=== PATIENT | male | born 1955 | race Caucasian/White ===

== ENCOUNTER 2023-02-16 08:39 | Inpatient (IN) | payer OTHER ==
[~2023-02-16] VITALS: Ht 191 cm; Wt 75.9 kg
[2023-02-16] VITALS (21 sets, daily range): BP systolic 102–135; BP diastolic 69–102
[~2023-02-16 08:39] MED LIST: ALBU90OI INH; ALBU90OI6 INH; AMLO10 PO; ANORO ELLIPTA1 EACH INH; ATOR20 PO; AZIT250 PO; CYCL10; DOXA2 PO; IBUP800 PO; LISINOPRIL PO; Mucinex600 MG PO; OXYACE5T PO; PROP10 PO; Prednisone20 MG PO; Zithromax250 MG PO
[2023-02-16 09:21] LABS: BASOPHILS ABSOLUTE AUTO 0.12 K/mm3 (0.00-0.23); BASOPHILS PERCENT AUTO 1 % (0-2); EOSINOPHILS ABSOLUTE AUTO 0.02 K/mm3 (0.00-0.68); EOSINOPHILS PERCENT AUTO 0 % (0-6); Hematocrit 44.4 % (37.0-53.0); Hemoglobin 15.9 g/dL (13.5-17.5); IMMATURE GRAN PERCENT AUTO 2 % (0-1); LYMPHOCYTES ABSOLUTE AUTO 1.64 K/mm3 (0.84-5.20); LYMPHOCYTES PERCENT AUTO 11 % (21-46); MONOCYTES ABSOLUTE AUTO 2.63 K/mm3 (0.16-1.47); MONOCYTES PERCENT AUTO 18 % (4-13); Mean Corpuscular HGB 32.5 pg (26.0-34.0); Mean Corpuscular HGB Conc 35.8 g/dL (31.5-36.5); Mean Corpuscular Volume 91 fL (80-100); NEUTROPHILS ABSOLUTE AUTO 10.33 K/mm3 (1.96-9.15); NEUTROPHILS PERCENT AUTO 69 % (41-73); Platelet Count 330 K/mm3 (150-400); RDW Coefficient Variation 14.1 % (11.7-14.2); RDW Standard Deviation 47.4 fL (35.1-46.3); Red Blood Cell Count 4.89 M/mm3 (4.30-5.90); White Blood Cell Count 15.04 K/mm3 (4.00-11.30)
[2023-02-16 09:45] LABS: Albumin, Blood 2.5 g/dL (3.4-5.0); Albumin/Globulin Ratio 0.5 (0.8-1.8); Bilirubin, Total 1.3 mg/dL (0.1-1.0); Bun/Creatinine Ratio 19.7 (12.0-20.0); Calcium, Blood 9.5 mg/dL (8.5-10.1); Creatinine, Blood 0.76 mg/dL (0.60-1.20); Globulin, Blood 4.9 g/dL (2.2-4.0); Potassium, Blood 3.9 mmol/L (3.5-5.5); Total Protein, Blood 7.4 g/dL (6.4-8.2)
--- NOTE | 2023-02-16 17:10 | NUR ---
SHIFT/ADMISSION SUMMARY Receied pt to medical floor at 1400 A&Ox3. Oriented to room and call light. Pain to left elbow 8/. Po pain med given. LUE wounds with drainage noted. Pictures in chart. Pt NPO for OR today. Will await report post procedure.
--- NOTE | 2023-02-16 17:48 | NUR ---
02/16/23 1748 Eli Guillen PRIOR TO COMING TO THE OR PATIENT RECEIVED CLINDA 900MG IV AT 1650 IN THE PREOP SETTING.
[2023-02-17 03:59] VITALS: BP 117/87
[2023-02-17 05:31] LABS: Hematocrit 32.5 % (37.0-53.0); Hemoglobin 11.4 g/dL (13.5-17.5); Mean Corpuscular HGB 32.1 pg (26.0-34.0); Mean Corpuscular HGB Conc 35.1 g/dL (31.5-36.5); Mean Corpuscular Volume 92 fL (80-100); Mean Platelet Volume 10.9 fL (9.1-12.4); Platelet Count 316 K/mm3 (150-400); RDW Coefficient Variation 14.4 % (11.7-14.2); RDW Standard Deviation 48.5 fL (35.1-46.3); Red Blood Cell Count 3.55 M/mm3 (4.30-5.90); White Blood Cell Count 15.59 K/mm3 (4.00-11.30)
[2023-02-17 05:53] LABS: BAND PERCENT MAN 7 % (0-8); BASOPHILS PERCENT MAN 0 % (0-2); EOSINOPHILS ABSOLUTE MAN 0.15 K/mm3 (0.00-0.68); EOSINOPHILS PERCENT MAN 1 % (0-6); LYMPHOCYTES % ATYPICAL MANUAL 3 % (0-0); LYMPHOCYTES ABSOLUTE MAN 1.87 K/mm3 (0.84-5.20); LYMPHOCYTES PERCENT MAN 9 % (21-46); MONOCYTES ABSOLUTE MAN 0.77 K/mm3 (0.16-1.47); MONOCYTES PERCENT MAN 5 % (4-13); NEUTROPHILS ABSOLUTE MAN 12.78 K/mm3 (1.96-9.15); SEG NEUTROPHILS PERCENT MAN 75 % (41-73); TOTAL CELLS COUNTED 100
--- NOTE | 2023-02-17 06:13 | NUR ---
SHIFT SUMMARY PT ARRIVED BACK FROM OR AT CHANGE OF SHIFT. PT HAD ALREADY SATURATED THROUGH HIS DRESSING AND THROUGH HIS GOWN AND PILLOW CASES OF SANGINOUS DRAINAGE. CALLED THE ANSWERING SERVICE FOR DR. LOPEZ WHO CALLED BACK AND SAID HE EXPECTED A DECENT AMOUNT OF DRAINAGE AND TO REINFORCE THE DRESSING. PT SATURATED THROUGH REINFORCEMENT DRESSING OF 3 ABD PADS, KERLIX ROLLED GAUZE AND JAMIR WRAP. DRESSING REMOVED AND REPLACED, AND CURRENTLY NOT SATURATING THROUGH THIS DRESSING. PRN NORCO GIVEN X2 WITH POSITIVE EFFECT. FIRE SAFETY REVIEWED, NO IGNITION SOURCES FOUND.
[2023-02-17 06:31] LABS: Albumin, Blood 1.8 g/dL (3.4-5.0); Albumin/Globulin Ratio 0.5 (0.8-1.8); Bilirubin, Total 0.6 mg/dL (0.1-1.0); Bun/Creatinine Ratio 29.1 (12.0-20.0); Creatinine, Blood 0.9 mg/dL (0.60-1.20); Globulin, Blood 3.5 g/dL (2.2-4.0)
[2023-02-17 06:33] LABS: Total Protein, Blood 5.3 g/dL (6.4-8.2)
[2023-02-17 08:44] VITALS: BP 107/77
--- NOTE | 2023-02-17 10:39 | NUR ---
Dr. Dawn at bedside, aware of hgb level today. Mateo FIGUEROA reinforced CDI. Plan return to OR tomorrow. NPO after MN
[2023-02-17 16:20] VITALS: BP 124/79
--- NOTE | 2023-02-17 16:28 | NUR ---
SHIFT SUMMARY Pt remains A&O x3 this shift. VSS. Continuous pulse ox in place as ordered. Resp even nonlabored on RA. Voiding without difficulty. Reinforced dressing to LUE CDI. Pain meds effective. Plan is to return to OR in am. NPO after MN. Call light in reach. Will continue to monitor this shift.
--- NOTE | 2023-02-17 18:43 | NUR ---
Pt requesting nicotine patch as he is craving a cigarette. Spoke with Dr. Perdomo who states he will not order as nicotine interupts the healing process. Pt made aware.
[2023-02-17 20:46] VITALS: BP 125/89
[2023-02-18] VITALS (22 sets, daily range): BP systolic 100–168; BP diastolic 63–101
[2023-02-18 05:29] LABS: Hematocrit 29.4 % (37.0-53.0); Hemoglobin 10.4 g/dL (13.5-17.5); Mean Corpuscular HGB 32.3 pg (26.0-34.0); Mean Corpuscular HGB Conc 35.4 g/dL (31.5-36.5); Mean Corpuscular Volume 91 fL (80-100); Mean Platelet Volume 10.2 fL (9.1-12.4); Platelet Count 346 K/mm3 (150-400); RDW Coefficient Variation 14.5 % (11.7-14.2); RDW Standard Deviation 48.9 fL (35.1-46.3); Red Blood Cell Count 3.22 M/mm3 (4.30-5.90); White Blood Cell Count 13.77 K/mm3 (4.00-11.30)
[2023-02-18 05:48] LABS: Bun/Creatinine Ratio 27.8 (12.0-20.0); Calcium, Blood 8.2 mg/dL (8.5-10.1); Creatinine, Blood 0.79 mg/dL (0.60-1.20); Potassium, Blood 3.2 mmol/L (3.5-5.5)
[2023-02-18 06:03] LABS: BAND PERCENT MAN 10 % (0-8); BASOPHILS PERCENT MAN 0 % (0-2); EOSINOPHILS ABSOLUTE MAN 0.13 K/mm3 (0.00-0.68); EOSINOPHILS PERCENT MAN 1 % (0-6); LYMPHOCYTES ABSOLUTE MAN 2.34 K/mm3 (0.84-5.20); LYMPHOCYTES PERCENT MAN 17 % (21-46); METAMYELOCYTE ABSOLUTE MAN 0.13 K/mm3 (0.00-0.00); METAMYELOCYTE PERCENT MAN 1 % (0-0); MONOCYTES ABSOLUTE MAN 1.92 K/mm3 (0.16-1.47); MONOCYTES PERCENT MAN 14 % (4-13); MYELOCYTE ABSOLUTE MAN 0.27 K/mm3 (0.00-0.00); MYELOCYTE PERCENT MAN 2 % (0-0); NEUTROPHILS ABSOLUTE MAN 8.95 K/mm3 (1.96-9.15); SEG NEUTROPHILS PERCENT MAN 55 % (41-73); TOTAL CELLS COUNTED 100
--- NOTE | 2023-02-18 06:48 | NUR ---
SHIFT SUMMARY PT C/O NICOTINE CRAVINGS, BUT PER SURGEON IS UNABLE TO HAVE NICOTINE REPLACEMENT. PRN PAIN MEDICATION GIVEN X3 WITH POSITIVE EFFECT. NPO SINCE MIDNIGHT. FIRE SAFETY REVIEWED. NO IGNITION SOURCES
--- NOTE | 2023-02-18 15:59 | NUR ---
02/18/23 1559 Gonzalo Koenig PT ON SCHEDULED ANTIBIOTICS.
--- NOTE | 2023-02-18 16:26 | NUR ---
SHIFT SUMMARY PT RESTING QUIETLY AWAKE AT START OF SHIFT. IVF'S INFUSING PER EMAR. PT NPO WAITING TO GO BACK FOR IRRIGATION AND DEBRIDEMENT. DR JOHNSON IN TO SEE PT IN AM TO CONFIRM PROCEDURE. DR WATT LATER IN TO SEE PT WELL. PT IS INDEPENDENT IN AND TO [facility]. STAT EKG DONE FOR PROCEDURE. PT FINALLY TAKEN DOWN THIS AFTERNOON. PT REMAINS IN PROCEDURE AT THIS TIME.
--- NOTE | 2023-02-18 18:55 | NUR ---
1515 PT RETURNED FROM I&D WITH WOUND VAC TO [facility]. PT ABLE TO TX SELF TO BED. IV ABX INFUSED PER EMAR LATE PT IN PROCEDURE. CURRENTLY EATING DINNER AND VERY GRATEFUL FOR FOOD AND WATER. REPORT GIVEN TO ONCOMING SMITHA.
[2023-02-19 03:39] VITALS: BP 131/81
[2023-02-19 04:43] LABS: Hematocrit 27.5 % (37.0-53.0); Hemoglobin 9.6 g/dL (13.5-17.5); Mean Corpuscular HGB 32.2 pg (26.0-34.0); Mean Corpuscular HGB Conc 34.9 g/dL (31.5-36.5); Mean Corpuscular Volume 92 fL (80-100); Mean Platelet Volume 9.9 fL (9.1-12.4); Platelet Count 377 K/mm3 (150-400); RDW Coefficient Variation 14.7 % (11.7-14.2); Red Blood Cell Count 2.98 M/mm3 (4.30-5.90); White Blood Cell Count 14.59 K/mm3 (4.00-11.30)
[2023-02-19 05:04] LABS: Albumin, Blood 1.9 g/dL (3.4-5.0); Anion Gap 4 mmol/L (6-16); Blood Urea Nitrogen 21 mg/dL (8-24); Bun/Creatinine Ratio 26.6 (12.0-20.0); CO2, Blood 27 mmol/L (21-32); Calcium, Blood 8.1 mg/dL (8.5-10.1); Chloride, Blood 104 mmol/L (98-108); Creatinine, Blood 0.79 mg/dL (0.60-1.20); Glomerular Filtration Rate 99 (60-); Glucose, Blood 130 mg/dL (70-99); Phosphorus, Blood 3.2 mg/dL (2.5-4.9); Potassium, Blood 4.2 mmol/L (3.5-5.5); Sodium, Blood 135 mmol/L (136-145)
[2023-02-19 05:32] LABS: BASOPHILS PERCENT MAN 0 % (0-2); EOSINOPHILS ABSOLUTE MAN 0.29 K/mm3 (0.00-0.68); EOSINOPHILS PERCENT MAN 2 % (0-6); LYMPHOCYTES % ATYPICAL MANUAL 1 % (0-0); LYMPHOCYTES ABSOLUTE MAN 2.33 K/mm3 (0.84-5.20); LYMPHOCYTES PERCENT MAN 15 % (21-46); METAMYELOCYTE ABSOLUTE MAN 0.72 K/mm3 (0.00-0.00); METAMYELOCYTE PERCENT MAN 5 % (0-0); MONOCYTES ABSOLUTE MAN 1.31 K/mm3 (0.16-1.47); MONOCYTES PERCENT MAN 9 % (4-13); NEUTROPHILS ABSOLUTE MAN 9.92 K/mm3 (1.96-9.15); SEG NEUTROPHILS PERCENT MAN 68 % (41-73); TOTAL CELLS COUNTED 100
--- NOTE | 2023-02-19 05:51 | NUR ---
SHIFT SUMMARY PRN PAIN MEDICATION GIVEN X2 THIS SHIFT WITH POSITIVE EFFECT. PT REQUESTED MEDICATION TO HELP HIM SLEEP. NOTIFIED YADIRA BANDA. ONE TIME ORDER OF MELATONIN GIVEN WITH NO EFFECT. NOTIFIED DR. RICO OF MELATONIN BEING INEFFECTIVE. TRAZADONE ORDER OBTAINED AND GIVEN, WITH NO EFFECT AGAIN. PT STATED HE WAS UNABLE TO SLEEP DUE TO HIS MIND RUNNING. NO OTHER EVENTS OVERNIGHT. FIRESAFETY REVIEWED, NO IGNITION SOURCES
[2023-02-19 07:48] VITALS: BP 133/96
[2023-02-19 16:27] VITALS: BP 147/90
--- NOTE | 2023-02-19 19:12 | NUR ---
SHIFT SUMMARY PT RESTING QUIETLY AT START OF SHIFT, HAVING NOT SLEPT MUCH AT ALL DURING THE NIGHT. PT RESTED QUIETLY OFF AND ON THRU OUT THE DAY. DR WATT IN TO SEE PT EARLY; NO NEW ORDERS AT THAT TIME. DR LOPEZ IN LATER TO SEE PT AND DISCUSS PLAN OF CARE. DRESSING TO L ARM TO BE CHANGED MONDAY, , AND MONDAY. SACK CLEANER TO COME UP AND CHANGE DRESSING TOMORROW AND HAVE WOUND CLINIC CHANGE DRSG THE REMAINING DAYS. POSSIBLE D/C AFTER DRSG CHANGE TOMORROW. IV ABX CONTINUED TODAY. PT MEDICATED FOR C/O PAIN PER EMAR. USING URINAL AT BS D/T WOUND VAC TO L ARM. DENIED FURTHER NEEDS AT THIS TIME. CALL LT IN REACH. REPORT GIVEN TO ONCOMING RN.
[2023-02-19 20:20] VITALS: BP 141/93
[2023-02-20 04:09] VITALS: BP 137/96
[2023-02-20 05:06] LABS: Hemoglobin 9.6 g/dL (13.5-17.5); Mean Corpuscular HGB Conc 34.3 g/dL (31.5-36.5); Mean Corpuscular Volume 93 fL (80-100); Mean Platelet Volume 9.6 fL (9.1-12.4); Platelet Count 413 K/mm3 (150-400); RDW Coefficient Variation 15.2 % (11.7-14.2); RDW Standard Deviation 51.8 fL (35.1-46.3); White Blood Cell Count 12.62 K/mm3 (4.00-11.30)
[2023-02-20 05:43] LABS: Albumin, Blood 1.9 g/dL (3.4-5.0); Anion Gap 3 mmol/L (6-16); Blood Urea Nitrogen 16 mg/dL (8-24); Bun/Creatinine Ratio 22.4 (12.0-20.0); CO2, Blood 27 mmol/L (21-32); Calcium, Blood 8.2 mg/dL (8.5-10.1); Chloride, Blood 108 mmol/L (98-108); Creatinine, Blood 0.71 mg/dL (0.60-1.20); Glomerular Filtration Rate 102 (60-); Glucose, Blood 111 mg/dL (70-99); Phosphorus, Blood 2.9 mg/dL (2.5-4.9); Potassium, Blood 4.4 mmol/L (3.5-5.5); Sodium, Blood 138 mmol/L (136-145)
[2023-02-20 05:45] LABS: BAND PERCENT MAN 2 % (0-8); BASOPHILS PERCENT MAN 0 % (0-2); EOSINOPHILS ABSOLUTE MAN 0.25 K/mm3 (0.00-0.68); EOSINOPHILS PERCENT MAN 2 % (0-6); LYMPHOCYTES % ATYPICAL MANUAL 1 % (0-0); LYMPHOCYTES ABSOLUTE MAN 4.92 K/mm3 (0.84-5.20); LYMPHOCYTES PERCENT MAN 38 % (21-46); METAMYELOCYTE PERCENT MAN 4 % (0-0); MONOCYTES PERCENT MAN 8 % (4-13); NEUTROPHILS ABSOLUTE MAN 5.93 K/mm3 (1.96-9.15); SEG NEUTROPHILS PERCENT MAN 45 % (41-73); TOTAL CELLS COUNTED 100
--- NOTE | 2023-02-20 06:35 | NUR ---
SHIFT SUMMARY NO EVENTS OVERNIGHT. PRN TRAZADONE AND PAIN MEDICATION GIVEN PER REQUEST. WOUND VAC TO L ARM, WOUND CARE NURSE TO CHANGE THE DRESSING TODAY. PT REPORTED A BM THIS SHIFT WELL.
[2023-02-20 07:59] VITALS: BP 140/99
[2023-02-20 15:43] VITALS: BP 149/99
--- NOTE | 2023-02-20 16:47 | NUR ---
WOUND CARE WOUND VAC DRESSING CHANGED. OLECRANON AND TWO MEDIAL UPPER ARM WOUNDS CLEANSED WITH NS. ADAPTIC PLACED TO MEDIAL WOUND BEDS. ALL WOUNDS DRAPPED WITH TRANSPARENT FILM. BLACK FOAM TO WOUND BEDS THEN TRACKED TOGETHER WITH BLACK FOAM. WOUND VAC SET TO CONTINOUS 120MMHG. PT TOLERATED WELL BUT DID REQUIRE BREAKTHROUH IV PAIN MEDICATION. DR. JOHNSON UPDATED ON PT STATUS. NEXT CHANGE MON.
--- NOTE | 2023-02-20 17:48 | NUR ---
SHIFT SUMMARY PT A&OX4, VSS, TOLERATING PO, VOIDING, AMB INDEPENDENTLY AND PAIN MANAGED W/ NORCO PO. DRESSING CHANGE DONE THIS AFTERNOON BY WOUND CARE NURSE, WOUND VAC IN PLACE, AND DRESSING C/D/I. CALLED DR. LOPEZ THIS AFTERNOON TO REQUEST PRN PAIN MED FOR DRESSING CHANGES, IV DILAUDID AND CONT PULSE OX ORDERED. CARE COORDINATION ROUNDED THIS AFTERNOON AND SPOKE W/ PT ABOUT POSSIBLE DISCHARGE TO SNF.
[2023-02-20 19:56] VITALS: BP 138/84
[2023-02-21 04:48] VITALS: BP 146/107
[2023-02-21 05:16] LABS: Hematocrit 30.4 % (37.0-53.0); Hemoglobin 10.2 g/dL (13.5-17.5); Mean Corpuscular HGB 31.6 pg (26.0-34.0); Mean Corpuscular HGB Conc 33.6 g/dL (31.5-36.5); Mean Corpuscular Volume 94 fL (80-100); Mean Platelet Volume 9.4 fL (9.1-12.4); Platelet Count 418 K/mm3 (150-400); RDW Coefficient Variation 15.1 % (11.7-14.2); RDW Standard Deviation 52.2 fL (35.1-46.3); Red Blood Cell Count 3.23 M/mm3 (4.30-5.90); White Blood Cell Count 16.51 K/mm3 (4.00-11.30)
[2023-02-21 06:08] LABS: BAND PERCENT MAN 4 % (0-8); BASOPHILS ABSOLUTE MAN 0.16 K/mm3 (0.00-0.23); BASOPHILS PERCENT MAN 1 % (0-2); EOSINOPHILS ABSOLUTE MAN 0.49 K/mm3 (0.00-0.68); EOSINOPHILS PERCENT MAN 3 % (0-6); LYMPHOCYTES ABSOLUTE MAN 4.62 K/mm3 (0.84-5.20); LYMPHOCYTES PERCENT MAN 28 % (21-46); MONOCYTES ABSOLUTE MAN 1.15 K/mm3 (0.16-1.47); MONOCYTES PERCENT MAN 7 % (4-13); MYELOCYTE ABSOLUTE MAN 0.33 K/mm3 (0.00-0.00); MYELOCYTE PERCENT MAN 2 % (0-0); NEUTROPHILS ABSOLUTE MAN 9.74 K/mm3 (1.96-9.15); SEG NEUTROPHILS PERCENT MAN 55 % (41-73); TOTAL CELLS COUNTED 100
--- NOTE | 2023-02-21 06:47 | NUR ---
SHIFT SUMMARY PRN TRAZADONE GIVEN PER REQUEST, PT SLEPT ENTIRE NIGHT, PT DID NOT REQUIRE PAIN MEDICATION OVERNIGHT.
[2023-02-21 07:52] VITALS: BP 157/109
[2023-02-21 14:33] VITALS: BP 141/96
[2023-02-21 19:14] VITALS: BP 150/96
[2023-02-22 04:29] VITALS: BP 145/93
[2023-02-22 04:57] LABS: Hemoglobin 10.2 g/dL (13.5-17.5); Mean Corpuscular HGB 31.9 pg (26.0-34.0); Mean Corpuscular Volume 94 fL (80-100); Mean Platelet Volume 9.4 fL (9.1-12.4); Platelet Count 458 K/mm3 (150-400); RDW Standard Deviation 51.6 fL (35.1-46.3); White Blood Cell Count 15.04 K/mm3 (4.00-11.30)
--- NOTE | 2023-02-22 05:37 | NUR ---
SHIFT SUMMARY PT LAYING IN BED DURING BEDSIDE REPORT, WOUND VAC TO LEFT UPPER ARM, PT ON CONTACT PRECAUTIONS- PT USES URINAL WITHOUT PROBLEMS, PT TOOK SCHEDULED HS MEDS WITHOUT PROBLEMS, PT C/O THAT PAIN IN LEFT UPPER ARM AND REQUESTED THAT I CALL AND GET PAIN MEDICATION, PT HAD NORCO 10/325MG PO PRN ORDERED, GAVE WITH HS MEDS 0030 PT REQUESTED ADDITIONAL PAIN MEDS FOR 7/10 PAIN IN LEFT UPPER ARM- PT SLEPT T/O REST OF SHIFT
[2023-02-22 05:52] LABS: BAND PERCENT MAN 2 % (0-8); BASOPHILS ABSOLUTE MAN 0.15 K/mm3 (0.00-0.23); BASOPHILS PERCENT MAN 1 % (0-2); EOSINOPHILS PERCENT MAN 4 % (0-6); LYMPHOCYTES ABSOLUTE MAN 3.76 K/mm3 (0.84-5.20); LYMPHOCYTES PERCENT MAN 25 % (21-46); METAMYELOCYTE PERCENT MAN 2 % (0-0); MONOCYTES ABSOLUTE MAN 1.65 K/mm3 (0.16-1.47); MONOCYTES PERCENT MAN 11 % (4-13); MYELOCYTE PERCENT MAN 2 % (0-0); NEUTROPHILS ABSOLUTE MAN 8.27 K/mm3 (1.96-9.15); SEG NEUTROPHILS PERCENT MAN 53 % (41-73); TOTAL CELLS COUNTED 100
[2023-02-22 07:12] VITALS: BP 146/93
--- NOTE | 2023-02-22 17:00 | NUR ---
SHIFT SUMMARY PT IS ALERT AND ORIENTED. INDEPENDENT IN THE ROOM. NO ACUTE CHANGES THIS SHIFT. WOUND CARE COMPLETED BY INTERNET RESEARCHER. PT IS ABLE TO MAKE NEEDS KNOWN. BED IS IN THE LOWEST POSITION WITH CALL LIGHT IN REACH.
--- NOTE | 2023-02-22 17:19 | NUR ---
WOUND CARE WOUND VAC DRESSING CHANGED PER ORDER. NEW PHOTO AND ASSESSMENT IN HARD CHART. FIVE TOTAL PIECES OF BLACK FOAM REMOVED. WOUNDS CLEANSED WITH NS, WINDOWPANED WITH TRANSPARENT FILM. SIX PIECES BLACK FOAM REAPPLIED, VAC SET TO CONTINUOUS 120MMHG. ALL WOUNDS ARE SHOWING IMPROVEMENT. PT TOLERATED CHANGE WELL
[2023-02-22 19:54] VITALS: BP 128/85
[2023-02-23 05:12] VITALS: BP 126/78
--- NOTE | 2023-02-23 05:25 | NUR ---
SHIFT SUMMARY PT LAYING IN BED DURING BEDSIDE ROUNDS, PT REPORTED PAIN TOLERABLE AT THAT TIME D/T PAIN MEDICATION GIVEN EARLIER, PT REQUESTED PAIN MEDICATION WITH HS IV ANTIBIOTICS- PT TOLERATED WELL, PT ON STYLIST APPRENTICE - 96-97% ON ROOM AIR- WOUND VAC IN PLACE AND SUCTIONING PER D.O- PT USES CALL LIGHT APPROPRIATELY
[2023-02-23 07:26] VITALS: BP 124/88
[2023-02-23 14:24] LABS: SARS-Cov-2 (COVID-19) PCR, MMC NEGATIVE (NEGATIVE)
[2023-02-23] MEDS ORDERED: JUVEN PACKET1 EAC3 PO (14:53)
[2023-02-23] MEDS ORDERED: CEFAZOLIN2 GM/50 M3 IV (14:54)
[2023-02-23] MEDS ORDERED: Norco 10-325 T1 EACH PO (14:55)
[2023-02-23] MEDS ORDERED: CLEOCIN PH600 MG/4 M IV (14:55)
[2023-02-23] MEDS ORDERED: VISBIOME 112.51 EACH PO (14:56)
--- NOTE | 2023-02-23 16:42 | NUR ---
PT DISCHARGED TO PSYCHIATRIC TO FINISH ANTIBIOTIC THERAPY. REPORT GIVEN TO RN AT FACILITY. ALERT AND ORIENTED X4 INDEPENDENT RA
== END 2023-02-23 16:20 | DRG 571 ==
LOC: ER 08:39 → MEDS 11:45
PROVIDERS: Family Medicine; Orthopaedic Surgery; Physician Assistant; Student in an Organized Health Care Education/Training Program; ADMIT Internal Medicine
PROC: 0JBF0ZZ Excision of Left Upper Arm Subcutaneous Tissue and Fascia, Open Approach (ICD-10-PCS; principal; 2023-02-16 15:30)
PROC: 0X970ZZ Drainage of Left Upper Extremity, Open Approach (ICD-10-PCS; 2023-02-18)
DX: L03.114 Cellulitis of left upper limb (principal); E87.1 Hypo-osmolality and hyponatremia; I10 Essential (primary) hypertension; B95.62 Methicillin resistant Staphylococcus aureus infection as the cause of diseases classified elsewhere; K46.9 Unspecified abdominal hernia without obstruction or gangrene; Z20.822 Contact with and (suspected) exposure to COVID-19; S40.812A Abrasion of left upper arm, initial encounter; D72.828 Other elevated white blood cell count; D64.9 Anemia, unspecified; E87.6 Hypokalemia; D75.839 Thrombocytosis, unspecified; X58.XXXA Exposure to other specified factors, initial encounter; F17.210 Nicotine dependence, cigarettes, uncomplicated; Z87.81 Personal history of (healed) traumatic fracture; Z79.899 Other long term (current) drug therapy; Z98.890 Other specified postprocedural states; Z98.818 Other dental procedure status; Z23 Encounter for immunization
CPT/HCPCS: 36415; 73201; 80048; 80053; 80069; 82550; 83605; 84295; 85025; 87040; 87070; 87075; 87077; 87147; 87186; 87205; 93005; 93010; 94640; 94664; 94760; 94762; 96365-59; 97110; 97116; 97162; 97165; 97530; 99284-25; A9270; C1751; J0295; J0690; J1100; J1170; J1650; J1885; J2250; J2405; J2543; J2704; J3010; J3370; J7030; J7120; Q9967; U0002

== ENCOUNTER 2023-03-24 04:47 | Day surgery (SDC) | payer OTHER ==
[~2023-03-24 04:47] MED LIST changes: +CEFAZOLIN2 GM/50 M3 IV; +CLEOCIN PH600 MG/4 M IV; +JUVEN PACKET1 EAC3 PO; +Norco 10-325 T1 EACH PO; +VISBIOME 112.51 EACH PO
== END 2023-03-24 22:53 | disposition home or self-care (01) ==
LOC: WOUND 04:47
DX: L02.414 Cutaneous abscess of left upper limb (principal); S41.102D Unspecified open wound of left upper arm, subsequent encounter
CPT/HCPCS: 99406

== ENCOUNTER 2023-03-31 01:43 | Day surgery (SDC) | payer OTHER | END 2023-03-31 22:51 | disposition home or self-care (01) | LOC: WOUND 01:43 | DX: S41.102D Unspecified open wound of left upper arm, subsequent encounter (principal); L02.414 Cutaneous abscess of left upper limb; J44.9 Chronic obstructive pulmonary disease, unspecified; X58.XXXD Exposure to other specified factors, subsequent encounter | CPT/HCPCS: G0463 ==

== ENCOUNTER 2023-04-07 03:02 | Day surgery (SDC) | payer OTHER | END 2023-04-07 22:38 | disposition home or self-care (01) | LOC: WOUND 03:02 | DX: S41.102D Unspecified open wound of left upper arm, subsequent encounter (principal); X58.XXXD Exposure to other specified factors, subsequent encounter | CPT/HCPCS: G0463 ==

== ENCOUNTER 2023-04-21 03:51 | Day surgery (SDC) | payer OTHER | END 2023-04-21 22:51 | disposition home or self-care (01) | LOC: WOUND 03:51 | DX: L02.414 Cutaneous abscess of left upper limb (principal); J44.9 Chronic obstructive pulmonary disease, unspecified; S41.102D Unspecified open wound of left upper arm, subsequent encounter; X58.XXXD Exposure to other specified factors, subsequent encounter | CPT/HCPCS: G0463 ==

== ENCOUNTER 2023-04-28 03:14 | Day surgery (SDC) | payer OTHER | END 2023-04-28 23:13 | disposition home or self-care (01) | LOC: WOUND 03:14 | DX: L02.414 Cutaneous abscess of left upper limb (principal); J44.9 Chronic obstructive pulmonary disease, unspecified; S41.102D Unspecified open wound of left upper arm, subsequent encounter | CPT/HCPCS: G0463 ==

== ENCOUNTER 2024-02-29 07:15 | Day surgery (SDC) | payer MEDICARE, OTHER ==
[~2024-02-29] VITALS: Ht 193 cm; Wt 80.7 kg
[2024-02-29] MEDS ORDERED: propofoL 40 ML IV ONE (07:36)
[2024-02-29] MEDS ORDERED: Lactated Ringer's 1,000 ML IV ONE ×2 (07:36→08:34)
[2024-02-29] MEDS ORDERED: ATOR20 (08:06)
[2024-02-29] MEDS ORDERED: Midazolam HCL 1 MG/ML 5MLVIAL ONE (09:00)
[2024-02-29] MEDS ORDERED: propofoL 20 ML IV ONE (09:25)
[2024-02-29 09:37] VITALS: BP 142/108
== END 2024-02-29 09:50 | disposition home or self-care (01) ==
LOC: ORSCSDS 07:15
PROVIDERS: Surgery
PROC: 0DBK8ZX Excision of Ascending Colon, Via Natural or Artificial Opening Endoscopic, Diagnostic (ICD-10-PCS; principal; 2024-02-29 08:30)
PROC: 0DBN8ZX Excision of Sigmoid Colon, Via Natural or Artificial Opening Endoscopic, Diagnostic (ICD-10-PCS; principal; 2024-02-29 08:30)
DX: R19.4 Change in bowel habit (principal); Z86.0101 Personal history of adenomatous and serrated colon polyps; D12.2 Benign neoplasm of ascending colon; D12.5 Benign neoplasm of sigmoid colon; J44.9 Chronic obstructive pulmonary disease, unspecified; E78.5 Hyperlipidemia, unspecified; I10 Essential (primary) hypertension; Z79.899 Other long term (current) drug therapy
CPT/HCPCS: 88305; J2250; J2704; J7120

== ENCOUNTER 2024-07-05 08:14 | Emergency (ER) | payer MEDICARE, OTHER ==
[~2024-07-05] VITALS: Ht 193 cm; Wt 77.1 kg
[~2024-07-05 08:14] MED LIST changes: +ATOR20
[2024-07-05 08:25] VITALS: BP 173/104
[2024-07-05] MEDS ORDERED: Bactrim Ds Tab1 EACH PO (08:33)
[2024-07-05] MEDS ORDERED: CEPH500 PO (08:33)
[2024-07-05] MEDS ORDERED: Trimethoprim/Sulfamethoxazole DS Tab PO ONE (08:35)
[2024-07-05] MEDS ORDERED: Cephalexin Monohydrate 500 MG Cap PO ONE (08:35)
== END 2024-07-05 09:31 | disposition home or self-care (01) ==
LOC: ER 08:14
DX: L02.211 Cutaneous abscess of abdominal wall (principal); I10 Essential (primary) hypertension; F17.200 Nicotine dependence, unspecified, uncomplicated
CPT/HCPCS: A9270

== ENCOUNTER 2024-10-09 00:21 | Inpatient (IN) | payer MEDICARE, OTHER ==
[~2024-10-09] VITALS: Ht 193 cm; Wt 79.7 kg
[2024-10-09] VITALS (7 sets, daily range): BP systolic 111–132; BP diastolic 84–100
[~2024-10-09 00:21] MED LIST changes: +Bactrim Ds Tab1 EACH PO; +CEPH500 PO
[2024-10-09] MEDS ORDERED: Albuterol 2.5 MG/3 ML VIAL INH SCH (00:25)
[2024-10-09 00:40] LABS: Bicarbonate Venous 13.3 mmol/L (24.0-30.0)
[2024-10-09 00:41] LABS: pH Blood Venous 7.14 (7.34-7.37)
[2024-10-09 00:42] LABS: PO2 Venous 32.9 mmHg (38-42)
[2024-10-09 00:43] LABS: PCO2 Venous 42 mmHg (38-42)
[2024-10-09 00:52] LABS: BASOPHILS ABSOLUTE AUTO 0.23 K/mm3 (0.00-0.23); BASOPHILS PERCENT AUTO 1 % (0-2); EOSINOPHILS ABSOLUTE AUTO 0.23 K/mm3 (0.00-0.68); EOSINOPHILS PERCENT AUTO 1 % (0-6); Hematocrit 51.3 % (37.0-53.0); Hemoglobin 16.6 g/dL (13.5-17.5); IMMATURE GRAN ABSOLUTE AUTO 0.52 K/mm3 (0.00-0.10); IMMATURE GRAN PERCENT AUTO 2 % (0-1); LYMPHOCYTES ABSOLUTE AUTO 9.62 K/mm3 (0.84-5.20); LYMPHOCYTES PERCENT AUTO 38 % (21-46); MONOCYTES PERCENT AUTO 10 % (4-13); Mean Corpuscular HGB 31.7 pg (26.0-34.0); Mean Corpuscular HGB Conc 32.4 g/dL (31.5-36.5); Mean Corpuscular Volume 98 fL (80-100); NEUTROPHILS ABSOLUTE AUTO 11.95 K/mm3 (1.96-9.15); NEUTROPHILS PERCENT AUTO 48 % (41-73); NRBC ABSOLUTE 0.02 K/mm3 (0.00-0.02); NRBC Auto 0.1 /100 WBC (0.0-0.2); RDW Coefficient Variation 14.1 % (11.7-14.2); RDW Standard Deviation 51.6 fL (35.1-46.3); Red Blood Cell Count 5.23 M/mm3 (4.30-5.90); White Blood Cell Count 25.15 K/mm3 (4.00-11.30)
[2024-10-09 00:54] LABS: Mean Platelet Volume 9.8 fL (9.1-12.4); Platelet Count 194 K/mm3 (150-400)
[2024-10-09] MEDS ORDERED: CefTRIAXone Sodium 1,000 MG in NS 100 ML IV ONE (01:05)
[2024-10-09] MEDS ORDERED: Azithromycin 500 MG in NS 250 ML IV ONE (01:05)
[2024-10-09 03:58] LABS: Influenza A, PCR NEGATIVE (NEGATIVE); Influenza B, PCR NEGATIVE (NEGATIVE); Resp Syncytial Virus, PCR NEGATIVE (NEGATIVE); SARS-Cov-2 (COVID-19) PCR, MMC NEGATIVE (NEGATIVE)
[2024-10-09 03:59] LABS: Albumin, Blood 2.7 g/dL (3.4-5.0); Albumin/Globulin Ratio 0.6 (0.8-1.8); Bilirubin, Total 1.7 mg/dL (0.1-1.0); Bun/Creatinine Ratio 11.2 (12.0-20.0); Calcium, Blood 8.5 mg/dL (8.5-10.1); Creatinine, Blood 1.07 mg/dL (0.60-1.20); Globulin, Blood 4.7 g/dL (2.2-4.0); Potassium, Blood 4.5 mmol/L (3.5-5.5); Total Protein, Blood 7.4 g/dL (6.4-8.2)
[2024-10-09] MEDS ORDERED: NS 250 ML IV PRN (04:50)
[2024-10-09] MEDS ORDERED: Ipratropium/Albuterol SulF 2.5-0.5MG/3 ML Amp INH PRN (05:10)
[2024-10-09] MEDS ORDERED: Sodium Bicarb 8.4% Inj 75 MEQ in Sodium Chloride 0.45% 1,000 ML IV SCH (05:20)
[2024-10-09] MEDS ORDERED: LOSA50 PO (05:22)
[2024-10-09 05:54] LABS: BASOPHILS ABSOLUTE AUTO 0.04 K/mm3 (0.00-0.23); BASOPHILS PERCENT AUTO 0 % (0-2); EOSINOPHILS ABSOLUTE AUTO 0.01 K/mm3 (0.00-0.68); EOSINOPHILS PERCENT AUTO 0 % (0-6); Hematocrit 45.6 % (37.0-53.0); Hemoglobin 15.4 g/dL (13.5-17.5); IMMATURE GRAN ABSOLUTE AUTO 0.21 K/mm3 (0.00-0.10); IMMATURE GRAN PERCENT AUTO 1 % (0-1); LYMPHOCYTES ABSOLUTE AUTO 0.96 K/mm3 (0.84-5.20); LYMPHOCYTES PERCENT AUTO 6 % (21-46); MONOCYTES ABSOLUTE AUTO 0.69 K/mm3 (0.16-1.47); MONOCYTES PERCENT AUTO 5 % (4-13); Mean Corpuscular HGB 31.6 pg (26.0-34.0); Mean Corpuscular HGB Conc 33.8 g/dL (31.5-36.5); Mean Platelet Volume 9.7 fL (9.1-12.4); NEUTROPHILS ABSOLUTE AUTO 13.06 K/mm3 (1.96-9.15); NEUTROPHILS PERCENT AUTO 87 % (41-73); Platelet Count 210 K/mm3 (150-400); RDW Coefficient Variation 14.1 % (11.7-14.2); RDW Standard Deviation 48.2 fL (35.1-46.3); Red Blood Cell Count 4.88 M/mm3 (4.30-5.90); White Blood Cell Count 14.97 K/mm3 (4.00-11.30)
[2024-10-09 05:55] LABS: Mean Corpuscular Volume 93 fL (80-100)
[2024-10-09] MEDS ORDERED: Albuterol 2.5 MG/3 ML VIAL INH PRN (05:55)
[2024-10-09] MEDS ORDERED: MethylPREDNISolone Sod Succ 125 MG Vial IV SCH (06:00)
[2024-10-09 06:12] LABS: Albumin, Blood 2.6 g/dL (3.4-5.0); Albumin/Globulin Ratio 0.6 (0.8-1.8); Bilirubin, Total 1.2 mg/dL (0.1-1.0); Bun/Creatinine Ratio 15.6 (12.0-20.0); Calcium, Blood 8.6 mg/dL (8.5-10.1); Creatinine, Blood 0.96 mg/dL (0.60-1.20); Globulin, Blood 4.2 g/dL (2.2-4.0); Potassium, Blood 4.4 mmol/L (3.5-5.5); Total Protein, Blood 6.8 g/dL (6.4-8.2)
[2024-10-09] MEDS ORDERED: Loperamide HCl 2 MG Cap PO PRN (08:10)
[2024-10-09] MEDS ORDERED: Losartan Potassium 50 MG Tab PO SCH (09:00)
[2024-10-09] MEDS ORDERED: TRELEGY INHALER INH SCH (09:00)
[2024-10-09 10:21] LABS: Adenovirus Not Detected (NOT DETECT); Coronavirus 229E Not Detected (NOT DETECT); Coronavirus HKU1 Not Detected (NOT DETECT); Coronavirus NL63 Not Detected (NOT DETECT); Coronavirus OC43 Not Detected (NOT DETECT); Human Metapneumovirus Not Detected (NOT DETECT); Human Rhinovirus/Enterovirus Not Detected (NOT DETECT); Influenza A/2009-H1 Not Detected (NOT DETECT); Influenza A/H1 Not Detected (NOT DETECT); Influenza A/H3 Not Detected (NOT DETECT); Influenza B Not Detected (NOT DETECT); SARS-Cov-2 (COVID-19), BioFire Not Detected (NOT DETECT)
[2024-10-09 10:22] LABS: Bordetella pertussis Not Detected (NOT DETECT); Chlamydophila pneumoniae Not Detected (NOT DETECT); Mycoplasma pneumoniae Not Detected (NOT DETECT); Parainfluenza Virus 1 Not Detected (NOT DETECT); Parainfluenza Virus 2 Not Detected (NOT DETECT); Parainfluenza Virus 3 Not Detected (NOT DETECT); Parainfluenza Virus 4 Not Detected (NOT DETECT); Respiratory Syncytial Virus Not Detected (NOT DETECT)
[2024-10-09] MEDS ORDERED: NS 1,000 ML IV SCH (10:40)
[2024-10-09] MEDS ORDERED: TRELEGY ELLIPT1 EACH INH (11:56)
[2024-10-09 12:37] LABS: Bun/Creatinine Ratio 16.2 (12.0-20.0); Creatinine, Blood 1.05 mg/dL (0.60-1.20); Potassium, Blood 4.2 mmol/L (3.5-5.5)
[2024-10-09 12:50] LABS: Adenovirus F 40/41 Not Detected (NOT DETECT); Astrovirus Not Detected (NOT DETECT); Campylobacter Sp Not Detected (NOT DETECT); Cryptosporidium Not Detected (NOT DETECT); Cyclospora Cayetanensis Not Detected (NOT DETECT); E. Coli O157 Not Detected (NOT DETECT); Entamoeba Histolytica Not Detected (NOT DETECT); Enteroaggregative E. coli-EAEC Not Detected (NOT DETECT); Enteropathogenic E. coli-EPEC Not Detected (NOT DETECT); Enterotoxigenic E. coli-ETEC Not Detected (NOT DETECT); Giardia Lamblia Not Detected (NOT DETECT); Norovirus GI/GII Not Detected (NOT DETECT); Plesiomonas Shigelloides Not Detected (NOT DETECT); Rotavirus A Not Detected (NOT DETECT); Salmonella Sp Not Detected (NOT DETECT); Sapovirus Not Detected (NOT DETECT); Shiga Toxin-prod E. coli-STEC Not Detected (NOT DETECT); Shigella/Enteroin E. coli-EIEC Not Detected (NOT DETECT); Vibrio Cholerae Not Detected (NOT DETECT); Vibrio Sp Not Detected (NOT DETECT); Yersinia Enterocolitica Not Detected (NOT DETECT)
[2024-10-09] MEDS ORDERED: NS 1,000 ML IV ONE (16:10)
--- NOTE | 2024-10-09 21:56 | NUR ---
NOTIFIED HOSPITALIST OF CRITICAL RESULT OF CT SCAN.
--- NOTE | 2024-10-09 22:17 | NUR ---
RECIEVED CALL FROM HOSPITALIST REGARDING PT'S CT SCAN RESULTS. RECIEVED ORDERS FOR TRANSFER FROM HOSPITALIST.
--- NOTE | 2024-10-09 23:07 | NUR ---
TRANSFER NOTE CALLED REPORT TO COSTING MANAGERSUNITHA, AT 2241. PT TRANSFERED TO ICU 5 AT 2307. TELE NOTIFIED.
[2024-10-09] MEDS ORDERED: Dose Adjust by Pharmacy XX STA (23:16)
[2024-10-09] MEDS ORDERED: Heparin Sodium 5000 Units/ML 1ML MDV IV ONE (23:20)
[2024-10-09] MEDS ORDERED: Heparin Sodium,Porcine/0.5 NS 500 ML IV SCH (23:20)
[2024-10-09 23:24] LABS: Anti-Xa UFH, PHA Monitoring <0.10 IU/mL; International Normalized Ratio 1.07; Prothrombin Time Results 11.4 Sec (9.7-11.5)
[2024-10-10] VITALS (59 sets, daily range): BP systolic 105–156; BP diastolic 75–116
--- NOTE | 2024-10-10 05:51 | NUR ---
SHIFT SUMMARY PT ARRIVED TO UNIT AROUND 0. PT IS A/OX4, RESPONDING APPORPRIATLY AND ABLE TO MAKE NEEDS KNOWN. HR REMAINED IN 80'S, BP STABLE, NSR ON MONITOR. PT REMAINED ON ROOM AIR, SATS >92%, DENIED SOB THIS SHIFT, L/S CLEAR. PT IS TOLERATING PO INTAKE, NO BM, USES URINAL INDEPENDENTLY. HEPARIN GTT INFUSING AT 15 U/KG/H. CALL LIGHT IN REACH.
[2024-10-10] MEDS ORDERED: Azithromycin 500 MG in NS 250 ML IV SCH (06:00)
[2024-10-10 06:44] LABS: Hematocrit 39.4 % (37.0-53.0); Hemoglobin 13.4 g/dL (13.5-17.5); Mean Corpuscular HGB 32.3 pg (26.0-34.0); Mean Corpuscular Volume 95 fL (80-100); Mean Platelet Volume 9.8 fL (9.1-12.4); Platelet Count 202 K/mm3 (150-400); RDW Coefficient Variation 13.9 % (11.7-14.2); RDW Standard Deviation 48.9 fL (35.1-46.3); Red Blood Cell Count 4.15 M/mm3 (4.30-5.90); White Blood Cell Count 15.88 K/mm3 (4.00-11.30)
[2024-10-10 07:05] LABS: Bun/Creatinine Ratio 19.5 (12.0-20.0); Calcium, Blood 8.3 mg/dL (8.5-10.1); Creatinine, Blood 0.92 mg/dL (0.60-1.20); Potassium, Blood 4.8 mmol/L (3.5-5.5)
[2024-10-10] MEDS ORDERED: Clarify Drug Order XX ONE (07:20)
[2024-10-10] MEDS ORDERED: Enoxaparin 40 MG/0.4 ML SYR SC SCH (09:00)
[2024-10-10] MEDS ORDERED: Mometasone/Formoterol MDI 100/5 mcg 13 GM INH SCH (09:35)
[2024-10-10] MEDS ORDERED: Ipratropium Bromide INH 0.02% 0.5 mg/2.5ML Vial INH SCH (09:35)
[2024-10-10] MEDS ORDERED: Nicotine 14 MG PATCH TOP SCH (11:00)
--- NOTE | 2024-10-10 11:50 | NUR ---
ASSUMPTION OF CARE ASSUME CARE OF PT AT 0700 WITH KASSY BONE, RECIEVED REPORT FROM NICHELLE BONE. PT IS A&0 X4, ABLE TO MAKE NEEDS KNOWN. CONTINUOUS CARDIAC MONITORING IN PLACE SHOWING SR WITH HR IN THE 80'S. BP HAS BEEN STABLE WITH MAP > 65. PT IS ON RA WITH SP02 > 92%. PT IS ABLE TO USE URINAL. SEE FULL SHIFT ASSESMENT FOR MORE DETAILS.
[2024-10-10] MEDS ORDERED: Dose Adjust by Pharmacy XX STA (13:47)
[2024-10-10] MEDS ORDERED: Heparin Sodium 1000 Units/ML 10ML MDV ONE ×2 (16:20→18:29)
[2024-10-10] MEDS ORDERED: NS 1,000 ML IV ONE ×2 (16:20→17:43)
[2024-10-10] MEDS ORDERED: NS 250 ML IV ONE (16:20)
--- NOTE | 2024-10-10 17:34 | NUR ---
PT TO MANAGER THERAPY ESCORTED BY DR. GTZ AND NAHEED BONE.
--- NOTE | 2024-10-10 17:37 | NUR ---
END OF SHIFT SUMMARY PT IS A&0 x4, ABLE TO MAKE NEEDS KNOWN AND AFEBRILE. CONTINUOUS CARDIAC MONITORING IN PLACE SHOWING SR WITH HR IN 80'S. BP STABLE WITH A MAP > 65. PT ON ROOM AIR WITH SPO2 > 92%. NO BM THIS SHIFT, PT IS ABLE TO USE URINAL. WILL CONTINUE TO MONITOR AND REPORT TO ONCOMING SHIFT.
[2024-10-10] MEDS ORDERED: Midazolam HCl 1MG / ML 2ML Vial ONE (17:43)
[2024-10-10] MEDS ORDERED: FentaNYL Citrate 50 MCG/ML 2 ML Injection ONE ×2 (17:43→18:28)
--- NOTE | 2024-10-10 19:45 | NUR ---
ASSESSMENT/ASSUMED CARE PT ARRIVED BACK FROM [employer]ED [employer] DRAFTER. AWAKE A&O X4. DENIES PAIN OR DISCOMFORT. LUNGS CLEAR ON ROOMAIR. RESP EVEN AND NONLABORED. DENIES SOB OR COUGH. HEART RATE REGULAR SINUS RHYTHM IN THE 80'S. BP STABLE. NO EDEMA. RIGHT GROIN WITH CLOSURE DEVICE. SMALL AMT BLEEDING NOTED. AREA SOFT TO PALPATION. NO HEMATOMA NOTED. BT+ ABD SOFT AND NONTENDER. DENIES N/V. TAKING PO FLUIDS. REFUSED DINNER AT THIS TIME. "I'M NOT REALLY HUNGRY RIGHT NOW". PT VOIDED WITH ASSIST IN URINAL. IV RIGHT AC ABLE TO DRAW BLOOD AND FLUSH WITHOUT DIFFICULTY. SITE CLEAR. IV LEFT FOREARM ABLE TO FLUSH WITHOUT DIFFICULTY, SITE CLEAR. POWER GLIDE TO LEFT UPPER ARM WITH HEPARIN INFUSING AT 15 UNITS/KG/HR. SITE CLEAR. DRSG INTACT. PT TO REMAIN FLAT AT THIS TIME.
--- NOTE | 2024-10-10 23:46 | NUR ---
PT AWAKE SITTING UP IN BED AT 15% AND IN REV [place]. EATING DINNER. RIGHT GROIN STABLE
[2024-10-11] VITALS (29 sets, daily range): BP systolic 101–146; BP diastolic 70–98
[2024-10-11 02:25] LABS: BASOPHILS ABSOLUTE AUTO 0.02 K/mm3 (0.00-0.23); BASOPHILS PERCENT AUTO 0 % (0-2); EOSINOPHILS PERCENT AUTO 0 % (0-6); Hematocrit 36.9 % (37.0-53.0); IMMATURE GRAN ABSOLUTE AUTO 0.16 K/mm3 (0.00-0.10); IMMATURE GRAN PERCENT AUTO 1 % (0-1); LYMPHOCYTES ABSOLUTE AUTO 1.26 K/mm3 (0.84-5.20); LYMPHOCYTES PERCENT AUTO 7 % (21-46); MONOCYTES ABSOLUTE AUTO 1.27 K/mm3 (0.16-1.47); MONOCYTES PERCENT AUTO 7 % (4-13); Mean Corpuscular HGB 31.1 pg (26.0-34.0); Mean Corpuscular HGB Conc 32.5 g/dL (31.5-36.5); Mean Corpuscular Volume 96 fL (80-100); NEUTROPHILS ABSOLUTE AUTO 14.93 K/mm3 (1.96-9.15); NEUTROPHILS PERCENT AUTO 85 % (41-73); Platelet Count 214 K/mm3 (150-400); RDW Coefficient Variation 14.2 % (11.7-14.2); RDW Standard Deviation 49.8 fL (35.1-46.3); Red Blood Cell Count 3.86 M/mm3 (4.30-5.90); White Blood Cell Count 17.64 K/mm3 (4.00-11.30)
[2024-10-11] MEDS ORDERED: Dose Adjust by Pharmacy XX STA (02:42)
--- NOTE | 2024-10-11 05:52 | NUR ---
SHIFT SUMMARY PT RESTING QUIETLY. DENEIS PAIN OR DISCOMFORT. RIGHT GROIN STABLE. FLOWSTASIS CLOSURE DEVICE INTACT. NO BLEEDING OR HEMATOMA. PT TURNING AND MOVING SELF IN BED. VSS. HEPARIN CURRENTLY AT 13 UNITS/KG/HR. HEPARIN WAS PAUSED FOR ONE HOUR AFTER MORNING LABS. NEXT LAB DRAW AT 1100. REPORT TO ON COMING NURSE
--- NOTE | 2024-10-11 07:17 | NUR ---
ASSUMED CARE OF PATIENT AT APPROXIMATELY 0700. REPORT RECEIVED FROM SMITHA REIS. PT AWAKE IN BED, INTERACTING WITH STAFF APPROPRIATELY DURING BEDSIDE REPORT. CONTINUOUS CARDIAC MONITORING IN PLACE, BP STABLE, ON RA. R GROIN ACCESS SITE VISUALIZED c MINIMAL OOZING. NO HEMATOMA AND NONTENDER. NO ACUTE NEEDS IDENTIFIED AT THIS TIME. SEE SHIFT ASSESSMENT FOR FULL DETAILS.
[2024-10-11] MEDS ORDERED: Rivaroxaban 10 MG Tab PO SCH (09:30)
[2024-10-11] MEDS ORDERED: PRED20 PO (14:40)
[2024-10-11] MEDS ORDERED: XARELTO20 MG PO (14:41)
--- NOTE | 2024-10-11 15:11 | NUR ---
DISCHARGE/SUMMARY PT REMAINED ALERT AND ORIENTED X 4 T/O ENTIRETY OF SHIFT. ABLE TO FOLLOW COMMANDS, MAKE PURPOSEFUL MOVEMENTS, AND MAKE NEEDS KNOWN. AFEBRILE AND DENIES PAIN. CONTINUOUS CARDIAC MONITORING IN PLACE SHOWS SR c BP STABLE AND MAP > 65. ON RA c O2 SATURATIONS > 92%. TOLERATING INTAKE AND MEDS WELL. AMBULATING IN ROOM. FLOSTASIS DEVICE OUT AT 1100. NO BLEEDING, TEGADERM APPLIED. IV'S REMOVED. DISCHARGE PAPERWORK REVIEWED AND SIGNED. RIDE SCHEDULED FOR 1529. WILL CONTINUE TO MONITOR.
--- NOTE | 2024-10-11 15:27 | NUR ---
PT ESCORTED TO ADMITTING ENTRANCE WHERE HIS TRANSPORTATION WAS WAITING FOR HIM.
[2024-10-31] MEDS ORDERED: Rivaroxaban 10 MG Tab PO SCH (09:00)
== END 2024-10-11 15:30 | disposition home or self-care (01) | DRG 163 ==
LOC: ER 00:21 → ERHOLD 03:07 → MEDS 03:07 → ICUE 03:07 → MEDS 04:09 → ICUE 23:00
PROVIDERS: Emergency Medicine; Internal Medicine; Nurse Practitioner Acute Care; ADMIT Internal Medicine
PROC: 02CR3ZZ Extirpation of Matter from Left Pulmonary Artery, Percutaneous Approach (ICD-10-PCS; principal; 2024-10-10)
PROC: 02CQ3ZZ Extirpation of Matter from Right Pulmonary Artery, Percutaneous Approach (ICD-10-PCS; 2024-10-10)
PROC: B31T1ZZ Fluoroscopy of Left Pulmonary Artery using Low Osmolar Contrast (ICD-10-PCS; 2024-10-10)
PROC: B31S1ZZ Fluoroscopy of Right Pulmonary Artery using Low Osmolar Contrast (ICD-10-PCS; 2024-10-10)
PROC: 4A133B3 Monitoring of Arterial Pressure, Pulmonary, Percutaneous Approach (ICD-10-PCS; 2024-10-10)
PROC: 06H03DZ Insertion of Intraluminal Device into Inferior Vena Cava, Percutaneous Approach (ICD-10-PCS; 2024-10-10)
PROC: B5191ZZ Fluoroscopy of Inferior Vena Cava using Low Osmolar Contrast (ICD-10-PCS; 2024-10-10)
DX: I26.92 Saddle embolus of pulmonary artery without acute cor pulmonale (principal); J96.01 Acute respiratory failure with hypoxia; J96.02 Acute respiratory failure with hypercapnia; J44.1 Chronic obstructive pulmonary disease with (acute) exacerbation; E87.20 Acidosis, unspecified; I82.401 Acute embolism and thrombosis of unspecified deep veins of right lower extremity; E78.5 Hyperlipidemia, unspecified; I11.9 Hypertensive heart disease without heart failure; F17.210 Nicotine dependence, cigarettes, uncomplicated; Z79.51 Long term (current) use of inhaled steroids
CPT/HCPCS: 0202U; 0241U; 36415; 71045; 71260; 76937; 80048; 80053; 82803; 83605; 83880; 84484; 85025; 85027; 85520; 85610; 85730; 87040; 87507; 93005; 93010; 93306; 93970; 94640; 94644; 94664; 94762; 97162; 97530; 99152; 99153; 99285-25; A9270; C1751; C1757; C1769; C1880; C1887; C1894; J0456; J0696; J1644; J2250; J2919; J3010; J7030; J7050; Q9967

== ENCOUNTER 2024-10-16 19:43 | Inpatient (IN) | payer MEDICARE, OTHER ==
[~2024-10-16] VITALS: Ht 193 cm; Wt 80.2 kg
[~2024-10-16 19:43] MED LIST changes: +LOSA50 PO; +PRED20 PO; +TRELEGY ELLIPT1 EACH INH; +XARELTO20 MG PO
[2024-10-16 20:00] VITALS: BP 82/59
[2024-10-16 20:30] LABS: BASOPHILS ABSOLUTE AUTO 0.05 K/mm3 (0.00-0.23); BASOPHILS PERCENT AUTO 0 % (0-2); EOSINOPHILS ABSOLUTE AUTO 0.08 K/mm3 (0.00-0.68); EOSINOPHILS PERCENT AUTO 0 % (0-6); Hematocrit 35.4 % (37.0-53.0); Hemoglobin 11.8 g/dL (13.5-17.5); IMMATURE GRAN ABSOLUTE AUTO 0.46 K/mm3 (0.00-0.10); IMMATURE GRAN PERCENT AUTO 2 % (0-1); LYMPHOCYTES ABSOLUTE AUTO 2.35 K/mm3 (0.84-5.20); LYMPHOCYTES PERCENT AUTO 11 % (21-46); MONOCYTES ABSOLUTE AUTO 1.02 K/mm3 (0.16-1.47); MONOCYTES PERCENT AUTO 5 % (4-13); Mean Corpuscular HGB 31.1 pg (26.0-34.0); Mean Corpuscular HGB Conc 33.3 g/dL (31.5-36.5); Mean Corpuscular Volume 93 fL (80-100); Mean Platelet Volume 9.8 fL (9.1-12.4); NEUTROPHILS ABSOLUTE AUTO 18.37 K/mm3 (1.96-9.15); NEUTROPHILS PERCENT AUTO 82 % (41-73); Platelet Count 431 K/mm3 (150-400); RDW Coefficient Variation 13.8 % (11.7-14.2); White Blood Cell Count 22.33 K/mm3 (4.00-11.30)
[2024-10-16] MEDS ORDERED: Vancomycin HCL 2,000 MG in NS 520 ML IV ONE (20:40)
[2024-10-16] MEDS ORDERED: NS 1,000 ML IV SCH ×2 (20:40→21:50)
[2024-10-16] MEDS ORDERED: Piperacillin/Tazobactam Sod 3.375 GM in NS 100 ML IV ONE (20:40)
[2024-10-16 21:00] VITALS: BP 78/50
[2024-10-16 21:30] VITALS: BP 77/36
[2024-10-16 21:55] LABS: Albumin/Globulin Ratio 0.6 (0.8-1.8); Bilirubin, Total 0.8 mg/dL (0.1-1.0); Bun/Creatinine Ratio 9.8 (12.0-20.0); Creatinine, Blood 1.64 mg/dL (0.60-1.20); Globulin, Blood 3.2 g/dL (2.2-4.0); Potassium, Blood 3.6 mmol/L (3.5-5.5); Total Protein, Blood 5.2 g/dL (6.4-8.2)
[2024-10-16 22:00] VITALS: BP 91/64
[2024-10-16 22:30] VITALS: BP 104/71
[2024-10-16 23:00] VITALS: BP 101/68
[2024-10-16] MEDS ORDERED: Lactated Ringer's 1,000 ML IV SCH (23:00)
[2024-10-16] MEDS ORDERED: Acetaminophen 325 MG TABLET PO PRN (23:05)
[2024-10-16] MEDS ORDERED: Azithromycin 500 MG in NS 250 ML IV SCH (23:38)
[2024-10-17] VITALS (73 sets, daily range): BP systolic 73–142; BP diastolic 42–116
[2024-10-17 00:19] LABS: International Normalized Ratio 1.67; Prothrombin Time Results 17.7 Sec (9.7-11.5)
[2024-10-17 00:34] LABS: Adenovirus Not Detected (NOT DETECT); Bordetella pertussis Not Detected (NOT DETECT); Chlamydophila pneumoniae Not Detected (NOT DETECT); Coronavirus 229E Not Detected (NOT DETECT); Coronavirus HKU1 Not Detected (NOT DETECT); Coronavirus NL63 Not Detected (NOT DETECT); Coronavirus OC43 Not Detected (NOT DETECT); Human Metapneumovirus Not Detected (NOT DETECT); Human Rhinovirus/Enterovirus Not Detected (NOT DETECT); Influenza A/2009-H1 Not Detected (NOT DETECT); Influenza A/H1 Not Detected (NOT DETECT); Influenza A/H3 Not Detected (NOT DETECT); Influenza B Not Detected (NOT DETECT); Mycoplasma pneumoniae Not Detected (NOT DETECT); Parainfluenza Virus 1 Not Detected (NOT DETECT); Parainfluenza Virus 2 Not Detected (NOT DETECT); Parainfluenza Virus 3 Not Detected (NOT DETECT); Parainfluenza Virus 4 Not Detected (NOT DETECT); Respiratory Syncytial Virus Not Detected (NOT DETECT); SARS-Cov-2 (COVID-19), BioFire Not Detected (NOT DETECT)
[2024-10-17] MEDS ORDERED: Piperacillin/Tazobactam Sod 3.375 GM in NS 100 ML IV SCH ×2 (02:00→08:00)
[2024-10-17] MEDS ORDERED: NS 250 ML IV PRN (02:10)
[2024-10-17 03:48] LABS: BASOPHILS ABSOLUTE AUTO 0.04 K/mm3 (0.00-0.23); BASOPHILS PERCENT AUTO 0 % (0-2); EOSINOPHILS ABSOLUTE AUTO 0.11 K/mm3 (0.00-0.68); EOSINOPHILS PERCENT AUTO 1 % (0-6); Hematocrit 29.1 % (37.0-53.0); Hemoglobin 9.8 g/dL (13.5-17.5); IMMATURE GRAN ABSOLUTE AUTO 0.23 K/mm3 (0.00-0.10); IMMATURE GRAN PERCENT AUTO 1 % (0-1); LYMPHOCYTES ABSOLUTE AUTO 1.85 K/mm3 (0.84-5.20); LYMPHOCYTES PERCENT AUTO 9 % (21-46); MONOCYTES ABSOLUTE AUTO 2.24 K/mm3 (0.16-1.47); MONOCYTES PERCENT AUTO 11 % (4-13); Mean Corpuscular HGB 31.6 pg (26.0-34.0); Mean Corpuscular HGB Conc 33.7 g/dL (31.5-36.5); Mean Corpuscular Volume 94 fL (80-100); Mean Platelet Volume 9.5 fL (9.1-12.4); NEUTROPHILS ABSOLUTE AUTO 15.62 K/mm3 (1.96-9.15); NEUTROPHILS PERCENT AUTO 78 % (41-73); Platelet Count 332 K/mm3 (150-400); RDW Coefficient Variation 13.8 % (11.7-14.2); White Blood Cell Count 20.09 K/mm3 (4.00-11.30)
[2024-10-17] MEDS ORDERED: Ipratropium/Albuterol SulF 2.5-0.5MG/3 ML Amp INH SCH (03:55)
[2024-10-17] MEDS ORDERED: Albuterol 2.5 MG/3 ML VIAL INH PRN ×2 (04:00→07:50)
[2024-10-17] MEDS ORDERED: Ipratropium Bromide INH 0.02% 0.5 mg/2.5ML Vial INH SCH (04:05)
[2024-10-17] MEDS ORDERED: Mometasone/Formoterol MDI 100/5 mcg 13 GM INH SCH (04:05)
[2024-10-17 04:14] LABS: Albumin/Globulin Ratio 0.6 (0.8-1.8); Bilirubin, Total 1.1 mg/dL (0.1-1.0); Bun/Creatinine Ratio 9.5 (12.0-20.0); Calcium, Blood 7.9 mg/dL (8.5-10.1); Creatinine, Blood 1.48 mg/dL (0.60-1.20); Globulin, Blood 3.3 g/dL (2.2-4.0); Magnesium, Blood 2.1 mg/dL (1.6-2.4); Potassium, Blood 3.9 mmol/L (3.5-5.5); Total Protein, Blood 5.3 g/dL (6.4-8.2)
[2024-10-17] MEDS ORDERED: Mometasone Furoate Inhaler 220 mcg 14 ACT INH SCH (04:45)
--- NOTE | 2024-10-17 06:17 | NUR ---
SHIFT SUMMARY Patient arrived from ER at 0148. Patient transfered to bed stand by assist. Alert and oriented x 4. Follows commands appropriately, strong and equal throughout. GENEVA @ 3. Repositions self independently in bed. NSR vs SB. MAP goals maintained >65 off levophed. Pulses palpable throughout. Capillary refill less than 3 seconds. LR running @ 150ml/hr. O2 sats >90% on RA. Clear lung sounds throughout. Productive cough with thin clear sputum. Unable to obtain sputum culture due to increased saliva in specimen. Attempting to obtain another culture. Able to use urinal independently. Frequent small voids. Bruising on left groin. Raised and reddenned site at previous IV site in left AC. Some drainange noted. Dressing applied. Calluses on left foot. Patient notes they are painful when walking. Patient remains resting comfortably in bed.
[2024-10-17] MEDS ORDERED: Dose Adjust by Pharmacy XX STA ×3 (07:13→23:40)
[2024-10-17] MEDS ORDERED: TRELEGY ELLIPTA INH SCH (08:00)
[2024-10-17] MEDS ORDERED: CefTRIAXone Sodium 2,000 MG in NS 100 ML IV SCH (09:00)
[2024-10-17] MEDS ORDERED: Nicotine 14 MG PATCH TOP SCH (09:00)
[2024-10-17] MEDS ORDERED: Lactobacil 2-S.Thermo-Bifido 1 1 Cap PO SCH (09:00)
[2024-10-17] MEDS ORDERED: Heparin Sodium,Porcine/0.5 NS 500 ML IV SCH (09:00)
[2024-10-17] MEDS ORDERED: Vancomycin HCL 1,000 MG in NS 250 ML IV SCH (10:00)
[2024-10-17] MEDS ORDERED: Vancomycin HCL 750 MG in NS 250 ML IV SCH (10:00)
[2024-10-17] MEDS ORDERED: Lactated Ringer's 500 ML IV SCH (11:15)
[2024-10-17] MEDS ORDERED: Heparin Sodium 5000 Units/ML 1ML MDV IV ONE (16:05)
--- NOTE | 2024-10-17 17:14 | NUR ---
SHIFT SUMMARY NEURO: PATIENT ALERT AND ORIENTED X4. ABLE TO MAKE HIS NEEDS KNOWN AND CALLS APPROPRIATELY. HX ANXIETY PER PT. FOLLOWS COMMANDS AND ASKS QUESTIONS ABOUT HIS CARE. PT REPORTS SOME DIZZINESS AND BLURRY VISION THAT EBBS AND FLOWS. CARDIAC: HYPOTENSION AFTER FLUIDS D/C THIS AM. CALL TO DR YOUNG WHO ORDERED 500ML LR BOLUS. PT FLUID RESPONSIVE. SR-STACH SBP 100-130S, HR 90-100S. PULMONARY: CLEAR TO AUSCULATION, SOME INTERMITTENT SOB PER PT. O2 SATS >95% ON RA. GI: ABDOMEN IS SOFT/NON TENDER WITH ACTIVE BOWEL TONES. : USING URINAL IN BED, URINANTING SMALL AMOUNTS FREQUENTLY. HE STATES DUE TO HX STRICTURE. MOBILTY: ABLE TO STAND TO TRANSFER TO A NEW BED IN HIS ROOM SBA. ON HEPARIN GTT SEE MAR FOR TITRATION. WOUND TO RAC: VISIBLE REDNESS, ERYTHEMA, FIRM AREAS WHEN PALPATED. DRESSING CHANGED TODAY. CLEANSED WITH WOUND GLUING MACHINE ADJUSTER AND APPLIED POLYMEM FOAM AND SECURED WITH TEGADERM, PT TOLERATED WELL.
[2024-10-17 21:44] LABS: Vancomycin, Trough 15.4 ug/mL (5.0-10.0)
[2024-10-18] VITALS (19 sets, daily range): BP systolic 100–165; BP diastolic 54–94
--- NOTE | 2024-10-18 06:02 | NUR ---
RECV FROM ICU12, XFER TO PCU20, A&O X4, VSS, ON AIRBORNE & CONTACT PREC, NO / ANXIETY , ONGOING MGT OF R ARM CELLULITIS, ON CONT HEPARIN DRIP, HOOKED TO TELE W/ NSR READ BY NOLA, PLAN FOR MRI OF R ARM . ABLE TO SLEEP WELL.
[2024-10-18 06:27] LABS: BASOPHILS ABSOLUTE AUTO 0.04 K/mm3 (0.00-0.23); BASOPHILS PERCENT AUTO 0 % (0-2); EOSINOPHILS ABSOLUTE AUTO 0.15 K/mm3 (0.00-0.68); EOSINOPHILS PERCENT AUTO 1 % (0-6); Hematocrit 30.6 % (37.0-53.0); Hemoglobin 9.7 g/dL (13.5-17.5); IMMATURE GRAN ABSOLUTE AUTO 0.13 K/mm3 (0.00-0.10); IMMATURE GRAN PERCENT AUTO 1 % (0-1); LYMPHOCYTES PERCENT AUTO 19 % (21-46); MONOCYTES ABSOLUTE AUTO 1.26 K/mm3 (0.16-1.47); MONOCYTES PERCENT AUTO 12 % (4-13); Mean Corpuscular HGB Conc 31.7 g/dL (31.5-36.5); Mean Corpuscular Volume 98 fL (80-100); Mean Platelet Volume 9.1 fL (9.1-12.4); NEUTROPHILS PERCENT AUTO 66 % (41-73); Platelet Count 311 K/mm3 (150-400); RDW Coefficient Variation 14.1 % (11.7-14.2); RDW Standard Deviation 50.3 fL (35.1-46.3); Red Blood Cell Count 3.13 M/mm3 (4.30-5.90); White Blood Cell Count 10.58 K/mm3 (4.00-11.30)
[2024-10-18] MEDS ORDERED: Dose Adjust by Pharmacy XX STA ×3 (06:27→20:44)
[2024-10-18 06:49] LABS: Albumin, Blood 1.9 g/dL (3.4-5.0); Albumin/Globulin Ratio 0.5 (0.8-1.8); Bilirubin, Total 0.4 mg/dL (0.1-1.0); Bun/Creatinine Ratio 13.2 (12.0-20.0); Calcium, Blood 8.3 mg/dL (8.5-10.1); Creatinine, Blood 0.91 mg/dL (0.60-1.20); Globulin, Blood 3.5 g/dL (2.2-4.0); Magnesium, Blood 2.1 mg/dL (1.6-2.4); Phosphorus, Blood 3.3 mg/dL (2.5-4.9); Potassium, Blood 3.7 mmol/L (3.5-5.5); Total Protein, Blood 5.4 g/dL (6.4-8.2)
--- NOTE | 2024-10-18 08:05 | NUR ---
ASSUMPTION NOTE: THIS RN TO ASSUME CARE OF PATIENT. PATIENT AWAKE IN BED, EATING BREAKFAST. HAS CALL LIGHT WITHIN REACH, BED IN LOWEST POSITION. PATIENT VITAL SIGNS STABLE AND DENIED ANY CHEST PAIN OR FEELING SHORT OF BREATH AT ALL.
--- NOTE | 2024-10-18 09:10 | NUR ---
MD ROUNDED: MD ROUNDED AND PLAN WILL BE TO MAKE MEDICAL STATUS WITH TELE AND AWAITING THE TEST RESULTS AND BLOOD CULTURES.
[2024-10-18 10:56] LABS: Vancomycin, Trough 15.2 ug/mL (5.0-10.0)
--- NOTE | 2024-10-18 16:59 | NUR ---
SHIFT SUMMARY: PATIENT IS ALERT AND ORIENTED X4 AND ABLE TO MAKE NEEDS KNOWN & USES CALL LIGHT APPROPRIATELY. PATIENT IS SATTING >92% ON ROOM AIR,EVEN & UNLABORED RESPIRATIONS AT REST. ON TELE SHOWING SINUS RYTHM WITH OCCASIONAL TACHY CARDIA WITH RATE 105. PATIENT GOT AN ECHO DONE TODAY AND AWAITING AN MRI OF THE RIGHT ARM DUE TO CELLULITIS. PATIENT IS STAND BY ASSIST TO MANGE LINES/CHORDS. HAS HEPARIN RUNNIN AT 20.5UNITS/KG. GETTING IV ANTIBIOTICS & WAS ABLE TO REST THROUGHOUT THE SHIFT. PATIENT HAS CALL LIGHT WITHIN REACH, BED IN LOWEST POSITION & STATING NOTHING IS NEEDED AT THIS TIME.
[2024-10-19 00:50] VITALS: BP 137/86
[2024-10-19 03:25] LABS: BASOPHILS ABSOLUTE AUTO 0.03 K/mm3 (0.00-0.23); BASOPHILS PERCENT AUTO 0 % (0-2); EOSINOPHILS ABSOLUTE AUTO 0.19 K/mm3 (0.00-0.68); EOSINOPHILS PERCENT AUTO 2 % (0-6); Hematocrit 26.7 % (37.0-53.0); Hemoglobin 8.8 g/dL (13.5-17.5); IMMATURE GRAN ABSOLUTE AUTO 0.13 K/mm3 (0.00-0.10); IMMATURE GRAN PERCENT AUTO 1 % (0-1); LYMPHOCYTES ABSOLUTE AUTO 2.48 K/mm3 (0.84-5.20); LYMPHOCYTES PERCENT AUTO 24 % (21-46); MONOCYTES ABSOLUTE AUTO 1.15 K/mm3 (0.16-1.47); MONOCYTES PERCENT AUTO 11 % (4-13); Mean Corpuscular HGB 30.6 pg (26.0-34.0); Mean Platelet Volume 8.9 fL (9.1-12.4); NEUTROPHILS ABSOLUTE AUTO 6.45 K/mm3 (1.96-9.15); NEUTROPHILS PERCENT AUTO 62 % (41-73); Platelet Count 315 K/mm3 (150-400); RDW Coefficient Variation 13.8 % (11.7-14.2); RDW Standard Deviation 47.1 fL (35.1-46.3); Red Blood Cell Count 2.88 M/mm3 (4.30-5.90); White Blood Cell Count 10.43 K/mm3 (4.00-11.30)
[2024-10-19 03:34] LABS: Mean Corpuscular Volume 93 fL (80-100)
[2024-10-19 03:39] LABS: Bun/Creatinine Ratio 11.7 (12.0-20.0); Calcium, Blood 8.2 mg/dL (8.5-10.1); Creatinine, Blood 0.86 mg/dL (0.60-1.20); Potassium, Blood 3.8 mmol/L (3.5-5.5)
[2024-10-19 03:55] VITALS: BP 142/81
[2024-10-19] MEDS ORDERED: Dose Adjust by Pharmacy XX STA (03:59)
--- NOTE | 2024-10-19 06:29 | NUR ---
SHIFT SUMMARY A/OX4, COOPERATIVE WITH CARE, VERBALIZES NEEDS, USES CALL LIGHT APPROPRIATELY. PT DENIES PAIN. CONTINUOUS CARDIAC MONITORING, VSS, DENIES CHEST PAIN/PRESSURE. TACHY WITH EXERTION. ON HEPARIN DRIP RUNNING AT 22 U/KG/HR. ON RA, SATS ABOVE 95%, BREATHING IS SHALLOW AND UNLABORED. INDEPENDENT IN ROOM, AMBULATING TO BATHROOM WITH IV POLE. ON BM THIS SHIFT, SOFT AND BLACK, STATES THIS IS NORMAL FOR HIM DUE TO MEDICATIONS. NO ACUTE EVENTS THIS SHIFT.
[2024-10-19 07:19] VITALS: BP 137/85
--- NOTE | 2024-10-19 07:33 | NUR ---
VERIFIED HEPARIN GTT WITH JAMES RN. THIS RN ASSUMED CARE OF THE PT. VITALS STABLE. PT LAYING IN BED WITH NO NEEDS AT THIS TIME. URINAL WAS EMPTIED WHILE THIS RN WAS IN THE ROOM. CALL LIGHT IN REACH.
[2024-10-19 11:44] LABS: HIV 1,2 COMBO ANTIGEN/ANTIBODY Negative (Negative)
[2024-10-19 11:50] VITALS: BP 143/91
[2024-10-19] MEDS ORDERED: Rivaroxaban 10 MG Tab PO SCH (12:00)
[2024-10-19 13:42] LABS: Hematocrit 28.7 % (37.0-53.0); Hemoglobin 9.5 g/dL (13.5-17.5)
[2024-10-19 16:39] VITALS: BP 147/81
--- NOTE | 2024-10-19 17:19 | NUR ---
SHIFT SUMMARY THE PT IS PLEASENTLY A&OX4, IND IN THE ROOM, AND USES HIS CALL LIGHT APPROPRAITELY. ON TELE HE HAS BEEN SR 80'S-100'S , BP STABLE, AND HE DENIES ANY ANGINA OR CHEST PRESSURE. HE HAS BEEN ON RA W/ SPO2>93%, HE DENIES ANY SOB. HIS RAC WOUND WAS CLEANED AND REDRESSED THIS MORNING BEFORE AND AFTER HIS SHOWER. THE PT USES THE URINAL AT BEDSIDE AND LIKES TO USE THE BSC D/T INFREQUENT URGENCY WITH HIS BOWELS. DR. YOUNG ROUNDED ON THE PT THIS MORNING AND D/C'D HIS HEPARIN AND SWITCHED HIM TO XERELTO. BLOOD CULTURES ARE PENDING , AND IF POSITIVE, DR. PALMER WAS RECCOMMENDING A T.E.E. ALSO, PT MAY REQUIRE IV ABX FOR ABOUT A MONTH AND COULD NEED A PICC. CARDIAC CATH TECH UPDATED ON POTENTIAL PLANS FOR THE PT. NO ACUTE EVENTS THIS SHIFT. BED IN LOW, CALL LIGHT IN REACH. SEE NOTES FOR ANY UPDATES.
[2024-10-19 20:52] VITALS: BP 158/112
[2024-10-20 00:38] VITALS: BP 130/82
[2024-10-20 04:08] VITALS: BP 133/83
[2024-10-20 04:28] LABS: BASOPHILS ABSOLUTE AUTO 0.03 K/mm3 (0.00-0.23); BASOPHILS PERCENT AUTO 0 % (0-2); EOSINOPHILS ABSOLUTE AUTO 0.26 K/mm3 (0.00-0.68); EOSINOPHILS PERCENT AUTO 3 % (0-6); Hematocrit 26.9 % (37.0-53.0); Hemoglobin 8.9 g/dL (13.5-17.5); IMMATURE GRAN ABSOLUTE AUTO 0.12 K/mm3 (0.00-0.10); IMMATURE GRAN PERCENT AUTO 1 % (0-1); LYMPHOCYTES ABSOLUTE AUTO 2.52 K/mm3 (0.84-5.20); LYMPHOCYTES PERCENT AUTO 25 % (21-46); MONOCYTES ABSOLUTE AUTO 1.17 K/mm3 (0.16-1.47); MONOCYTES PERCENT AUTO 12 % (4-13); Mean Corpuscular HGB 30.8 pg (26.0-34.0); Mean Corpuscular HGB Conc 33.1 g/dL (31.5-36.5); Mean Corpuscular Volume 93 fL (80-100); NEUTROPHILS ABSOLUTE AUTO 5.82 K/mm3 (1.96-9.15); NEUTROPHILS PERCENT AUTO 59 % (41-73); Platelet Count 291 K/mm3 (150-400); RDW Standard Deviation 47.6 fL (35.1-46.3); Red Blood Cell Count 2.89 M/mm3 (4.30-5.90); White Blood Cell Count 9.92 K/mm3 (4.00-11.30)
[2024-10-20 04:46] LABS: Bun/Creatinine Ratio 7.5 (12.0-20.0); Calcium, Blood 8.6 mg/dL (8.5-10.1); Creatinine, Blood 0.8 mg/dL (0.60-1.20)
[2024-10-20 05:50] LABS: QUANTIFERON MITOGEN MINUS NIL 9.78 IU/mL; QUANTIFERON NIL 0.22 IU/mL; QUANTIFERON PLUS TB1 MINUS NIL 0.03 IU/mL (<=0.34)
--- NOTE | 2024-10-20 06:57 | NUR ---
SHIFT SUMMARY A/OX4, COOPERATIVE WITH CARE, VERBALIZES NEEDS, USES CALL LIGHT APPROPRIATELY. PT DENIES PAIN. CONTINUOUS CARDIAC MONITORING, VSS, DENIES CHEST PAIN/PRESSURE. TACHY WITH EXERTION. ON RA, SATS ABOVE 95%, BREATHING IS SHALLOW AND UNLABORED. INDEPENDENT IN ROOM, AMBULATING TO BATHROOM WITH IV POLE. NO ACUTE EVENTS THIS SHIFT.
[2024-10-20 08:13] VITALS: BP 156/91
[2024-10-20] MEDS ORDERED: TRELEGY INH SCH ×2 (09:00→15:30)
[2024-10-20] MEDS ORDERED: Losartan Potassium 50 MG Tab PO SCH (09:00)
[2024-10-20 12:04] VITALS: BP 157/86
[2024-10-20 15:48] VITALS: BP 143/80
--- NOTE | 2024-10-20 17:19 | NUR ---
END OF SHIFT SUMMARY THE PT IS A&OX4, IND IN THE ROOM, AND MAKES HIS NEEDS KNOWN. PT HAS BEEN MEDICAL STATUS AND TELE WAS D/C'D TODAY. BP STABLE. SP02 >93% ON RA. BLOOD CULTURES STILL PENDING. NO ACUTE EVENTS. SEE NOTES FOR ANY UPDATES.
[2024-10-20 21:01] VITALS: BP 143/90
[2024-10-21 04:00] VITALS: BP 102/74
[2024-10-21 08:13] VITALS: BP 157/91
[2024-10-21 11:02] LABS: Creatinine, Blood 0.88 mg/dL (0.60-1.20); Vancomycin, Trough 14.8 ug/mL (5.0-10.0)
[2024-10-21 11:31] VITALS: BP 159/100
[2024-10-21 16:26] VITALS: BP 165/97
--- NOTE | 2024-10-21 16:58 | NUR ---
SHIFT SUMMARY: PT IS TON[place]ANDA, A&Ox4, PLEASANT AND COOPERATIVE W/CARE, ABLE TO MAKE NEEDS KNOWN. PT HAS DENIED SOB T/OUT THIS SHIFT, O2 SATS >93% ON RA. PT DENIES CP, VSS. PT IS CONTINENT, SHOWERED INDEPENDENTLY TODAY. PT REPORTS THE WOUND TO HIS RUE IS LOOKING MUCH BETTER AND LESS RED. IV ABX ADMINISTERED PER ORDERS. NO GROWTH ON BLOOD CX TODAY. PROVIDER AT BEDSIDE TODAY TO DISCUSS BUSINESS LAW PROFESSOR PLAN FOR IV ABX, PT AWARE OF OPTIONS AND STATES HE WOULD LIKE TO THINK ABOUT THEM. AT THIS TIME, PT IS RESTING IN BED QUIETLY W/CALL LIGHT IN REACH.
[2024-10-21 20:05] VITALS: BP 150/97
[2024-10-21 23:32] VITALS: BP 158/101
[2024-10-22 05:00] VITALS: BP 131/70
[2024-10-22 05:50] VITALS: BP 145/90
--- NOTE | 2024-10-22 06:39 | NUR ---
TRANSFER PT ARRIVED FROM U AT APPROX 0615 THIS MORNING. PT A/OX4 WITH VSS. PLEASANT AND COOPERATIVE WITH CARE. IV REMOVED FROM LEFT FA RELATED TO LEAKING DURING FLUSHING. WILL DISCUSS EXT DWELL WITH DAY RN/PROVIDER. PT DENIES SOB, PAIN, N/T, CP OR N/V. AMB SBA/IND TO BATHROOM. IS VOIDING. REPORTS SINDI REGULAR DIET. RIGHT ARM WRAPPED IN WARM BLANKET AND ELEVATED FROM PREVIOUS INFECTION. PLAN FOR POSSIBLE D/C TODAY WITH OUTPATIENT ABX. PT INTERESTED IN SELF IV INFUSION AT HOME WITH HOME HEALTH ASSISTANCE FOR EDUCATION AND SUPPORT. PLAN TO GIVE REPORT TO DAY RN. PT RESTING IN BED WITH CALL LIGHT IN REACH.
[2024-10-22 07:19] VITALS: BP 158/90
[2024-10-22] MEDS ORDERED: Nicotine Polacrilex 2 MG Gum PO PRN (09:50)
[2024-10-22] MEDS ORDERED: Vancomycin HCL 1,750 MG in NS 500 ML IV SCH (10:00)
[2024-10-22 15:09] VITALS: BP 147/85
--- NOTE | 2024-10-22 18:12 | NUR ---
PT A&OX4, COOPERATIVE WITH CARE. IV VANCO ADMINISTERED PER ORDER, FREQUENCY REDUCED TO 1X/DAY TO PREPARE FOR OUT PATIENT INFUSION. PLAN TO DISCHARGE TOMORROW ONCE INFUSIONS CAN BE SET UP. PT INDEPENDENT IN ROOM, C/O HEADACHE THIS AM, PRN TYLENOL EFFECTIVE.
[2024-10-22 19:05] VITALS: BP 168/101
[2024-10-23 05:01] VITALS: BP 133/95
[2024-10-23 06:55] LABS: Bun/Creatinine Ratio 8.4 (12.0-20.0); Creatinine, Blood 0.84 mg/dL (0.60-1.20); Potassium, Blood 3.7 mmol/L (3.5-5.5)
[2024-10-23 07:42] VITALS: BP 153/85
[2024-10-23] MEDS ORDERED: NICOTINE GUM2 M1 PO ×2 (12:41)
[2024-10-23] MEDS ORDERED: PROBIOTIC ACID1 EAC8 PO ×2 (12:42)
--- NOTE | 2024-10-23 14:54 | NUR ---
DISCHARGE DISCHARGE INSTRUCTIONS GONE OVER WITH PATIENT. PT HAS FOLLOW UP APPOINTMENT FOR M.I.[facility] TOMORROW AND HAS A RIDE SET UP. DRESSING FOR POWERGLIDE CHANGED PRIOR TO DISCHARGE. PT CONTINUES TO AMBULATE INDEPENDENTLY IN THE ROOM. TOLERATING DIET WELL AND DENIES PAIN. ALL BELONGINGS WITH PATIENT. HOME TRELEGY RETURNED. PT HAS TRANSPORT HOME SET UP FOR 1529 AND WILL BE ESCORTED OUT VIA WHEELCHAIR.
[2024-10-24] MEDS ORDERED: VANCOMYCIN HCL1 G1 IV (09:18)
== END 2024-10-23 15:29 | disposition home or self-care (01) | DRG 314 ==
LOC: ER 19:43 → PCU 23:00 → ICUE 23:00 → SURS 23:00 → ICUE 10-17 01:30 → PCU 10-18 03:37 → SURS 10-22 05:30
PROVIDERS: Internal Medicine; Student in an Organized Health Care Education/Training Program; ADMIT Student in an Organized Health Care Education/Training Program
PROC: 3E033XZ Introduction of Vasopressor into Peripheral Vein, Percutaneous Approach (ICD-10-PCS; principal; 2024-10-16)
PROC: 3E03329 Introduction of Other Anti-infective into Peripheral Vein, Percutaneous Approach (ICD-10-PCS; 2024-10-16)
PROC: B24BZZZ Ultrasonography of Heart with Aorta (ICD-10-PCS; 2024-10-18)
DX: T80.212A Local infection due to central venous catheter, initial encounter (principal); A41.02 Sepsis due to Methicillin resistant Staphylococcus aureus; I26.99 Other pulmonary embolism without acute cor pulmonale; R65.21 Severe sepsis with septic shock; L03.113 Cellulitis of right upper limb; E87.20 Acidosis, unspecified; J44.0 Chronic obstructive pulmonary disease with (acute) lower respiratory infection; N17.9 Acute kidney failure, unspecified; F41.9 Anxiety disorder, unspecified; I10 Essential (primary) hypertension; J98.4 Other disorders of lung; F17.210 Nicotine dependence, cigarettes, uncomplicated; Z79.51 Long term (current) use of inhaled steroids; Z98.890 Other specified postprocedural states; Z79.52 Long term (current) use of systemic steroids; Z79.899 Other long term (current) drug therapy; Z87.19 Personal history of other diseases of the digestive system; Z87.81 Personal history of (healed) traumatic fracture; Z87.448 Personal history of other diseases of urinary system; Z86.718 Personal history of other venous thrombosis and embolism
CPT/HCPCS: 0202U; 36415; 71260; 80048; 80053; 80202; 82565; 83605; 83735; 83880; 84100; 84145; 84484; 85014; 85018; 85025; 85610; 85730; 86480; 87040; 87077; 87147; 87186; 87389; 87449; 93005; 93010; 93308; 93321; 94640; 94664; 94760; 94762; 96361; 96365-59; 96368; 99285-25; A9270; J0456; J0696; J1644; J2543; J3370; J7030; J7040; J7050; J7060; J7120; Q9967

== ENCOUNTER 2024-10-25 01:21 | Day surgery (SDC) | payer MEDICARE, OTHER ==
[~2024-10-25 01:21] MED LIST changes: +NICOTINE GUM2 M1 PO; +PROBIOTIC ACID1 EAC8 PO; +VANCOMYCIN HCL1 G1 IV
[2024-10-25] MEDS ORDERED: Vancomycin HCL 1,750 MG in NS 500 ML IV SCH (06:00)
[2024-10-25 08:35] VITALS: BP 140/87
== END 2024-10-25 10:43 | disposition home or self-care (01) ==
LOC: ATC 01:21
DX: J44.9 Chronic obstructive pulmonary disease, unspecified (principal); A49.02 Methicillin resistant Staphylococcus aureus infection, unspecified site; I10 Essential (primary) hypertension; F17.210 Nicotine dependence, cigarettes, uncomplicated; Z79.899 Other long term (current) drug therapy
CPT/HCPCS: 96365; 96366; J3370; J7040

== ENCOUNTER 2024-10-26 02:29 | Day surgery (SDC) | payer MEDICARE, OTHER ==
[2024-10-26] MEDS ORDERED: Vancomycin HCL 1,750 MG in NS 500 ML IV SCH (06:00)
[2024-10-26 08:46] VITALS: BP 119/82
== END 2024-10-26 10:58 | disposition home or self-care (01) ==
LOC: ATC 02:29
DX: R78.81 Bacteremia (principal); B95.62 Methicillin resistant Staphylococcus aureus infection as the cause of diseases classified elsewhere; J44.9 Chronic obstructive pulmonary disease, unspecified; I10 Essential (primary) hypertension; F17.210 Nicotine dependence, cigarettes, uncomplicated; E78.5 Hyperlipidemia, unspecified; Z86.711 Personal history of pulmonary embolism; Z86.718 Personal history of other venous thrombosis and embolism; Z79.899 Other long term (current) drug therapy
CPT/HCPCS: 96365; 96366; J3370; J7040

== ENCOUNTER 2024-10-27 01:22 | Day surgery (SDC) | payer MEDICARE, OTHER ==
[2024-10-27 09:34] LABS: Creatinine, Blood 1.63 mg/dL (0.60-1.20)
[2024-10-27 09:36] LABS: Vancomycin, Trough 28.4 ug/mL (5.0-10.0)
[2024-10-27] MEDS ORDERED: NS 1,000 ML IV ONE (09:50)
--- NOTE | 2024-10-27 12:18 | NUR ---
LABS CALLED DR. RIVERA TO DISCUSS LAB RESULTS WITH THE INCREASE IN HIS CREATININE. RECEIVED A VERBAL ORDER FOR A ONE TIME BOLUS NS AND RECHECK CREATININE IN THE MORNING. SKIPPING VANCO TODAY PER PHARMACY DUE TO VANCO TROUGH RESULTS. PATIENT TO COME IN AT 0730 TOMORROW FOR IS NEXT DOSE.
== END 2024-10-27 11:57 | disposition home or self-care (01) ==
LOC: ATC 01:22
PROVIDERS: Internal Medicine
DX: R78.81 Bacteremia (principal); B95.61 Methicillin susceptible Staphylococcus aureus infection as the cause of diseases classified elsewhere; J44.9 Chronic obstructive pulmonary disease, unspecified; I10 Essential (primary) hypertension; E78.5 Hyperlipidemia, unspecified
CPT/HCPCS: 80202; 82565; 96360; J7030

== ENCOUNTER 2024-10-28 03:45 | Day surgery (SDC) | payer MEDICARE, OTHER ==
[2024-10-28 08:06] LABS: Creatinine, Blood 1.61 mg/dL (0.60-1.20); Vancomycin, Trough 19.4 ug/mL (5.0-10.0)
[2024-10-28] MEDS ORDERED: Vancomycin HCL 1,250 MG in NS 250 ML IV SCH (08:10)
[2024-10-28 08:24] VITALS: BP 142/95
== END 2024-10-28 10:00 | disposition home or self-care (01) ==
LOC: ATC 03:45
PROVIDERS: Internal Medicine
DX: A41.02 Sepsis due to Methicillin resistant Staphylococcus aureus (principal); L03.113 Cellulitis of right upper limb; R65.20 Severe sepsis without septic shock; I10 Essential (primary) hypertension; J44.9 Chronic obstructive pulmonary disease, unspecified; E78.5 Hyperlipidemia, unspecified; F17.210 Nicotine dependence, cigarettes, uncomplicated; Z79.899 Other long term (current) drug therapy
CPT/HCPCS: 36592; 80202; 82565; 96365; J3370; J7050

== ENCOUNTER 2024-11-14 03:06 | Day surgery (SDC) | payer MEDICARE, OTHER ==
[2024-11-14] MEDS ORDERED: Vancomycin HCL 1,500 MG in NS 250 ML IV SCH (06:00)
[2024-11-14 07:43] VITALS: BP 143/88
== END 2024-11-14 09:21 | disposition home or self-care (01) ==
LOC: ATC 03:06
DX: R78.81 Bacteremia (principal); B95.62 Methicillin resistant Staphylococcus aureus infection as the cause of diseases classified elsewhere; J44.9 Chronic obstructive pulmonary disease, unspecified; I10 Essential (primary) hypertension; E78.5 Hyperlipidemia, unspecified; F17.210 Nicotine dependence, cigarettes, uncomplicated; Z86.711 Personal history of pulmonary embolism; Z86.718 Personal history of other venous thrombosis and embolism; Z79.899 Other long term (current) drug therapy
CPT/HCPCS: 96365; 96366; J3370; J7050

== ENCOUNTER 2024-11-16 01:18 | Day surgery (SDC) | payer MEDICARE, OTHER ==
[~2024-11-16 01:18] MED LIST changes: +Vancomycin HCL 1,500 MG in NS 250 ML IV SCH
[2024-11-16 07:38] VITALS: BP 141/88
== END 2024-11-16 09:21 | disposition home or self-care (01) ==
LOC: ATC 01:18
DX: R78.81 Bacteremia (principal); B95.62 Methicillin resistant Staphylococcus aureus infection as the cause of diseases classified elsewhere; J44.9 Chronic obstructive pulmonary disease, unspecified; I10 Essential (primary) hypertension; E78.5 Hyperlipidemia, unspecified; F17.210 Nicotine dependence, cigarettes, uncomplicated; Z86.711 Personal history of pulmonary embolism; Z86.718 Personal history of other venous thrombosis and embolism; Z79.899 Other long term (current) drug therapy
CPT/HCPCS: 96365; 96366; J3370; J7050

== ENCOUNTER 2025-01-15 07:39 | Emergency (ER) | payer MEDICARE, OTHER ==
[~2025-01-15] VITALS: Ht 193 cm; Wt 81.7 kg
[~2025-01-15 07:39] MED LIST changes: -Vancomycin HCL 1,500 MG in NS 250 ML IV SCH
[2025-01-15 08:20] VITALS: BP 172/99
[2025-01-15] MEDS ORDERED: Diflucan100 MG PO (08:57)
[2025-01-15] MEDS ORDERED: NYAMYC15 G1 TOP (08:57)
== END 2025-01-15 09:31 | disposition home or self-care (01) ==
LOC: ER 07:39
DX: B37.49 Other urogenital candidiasis (principal); Z79.899 Other long term (current) drug therapy; Z79.2 Long term (current) use of antibiotics; I10 Essential (primary) hypertension; E78.5 Hyperlipidemia, unspecified; F17.200 Nicotine dependence, unspecified, uncomplicated
CPT/HCPCS: 99282; A9270

== ENCOUNTER 2025-03-19 06:07 | Day surgery (SDC) | payer MEDICARE, OTHER ==
[~2025-03-19] VITALS: Ht 193 cm; Wt 85.4 kg
[~2025-03-19 06:07] MED LIST changes: +Balanced Salt Epinephrine Irrigation Solution 500 mL IR SCH; +Diflucan100 MG PO; +Moxifloxacin HCL 0.5 MG/0.1 ML 0.4MLSYR RIGHTEYE SCH; +NYAMYC15 G1 TOP; +Ondansetron 4 MG SoluTab MM PRN; +PHENYLEPHRINE\\TROPICAMIDE\\TETRACAINE OPHTHALMIC DILATING SOLN RIGHTEYE PRN; +Povidone-Iodine 450 DROP/30 ML Solution ONE; +Povidone-Iodine 450 DROP/30 ML Solution RIGHTEYE SCH; +Tetracaine HCl/Pf 0.5% Opth Soln 4 ml ONE
[2025-03-19] MEDS ORDERED: TRELEGY ELLIPT1 EACH IH (06:41)
[2025-03-19] MEDS ORDERED: Tetracaine HCl 0.5% Opth Soln 15 ml RIGHTEYE ONE (07:29)
--- NOTE | 2025-03-19 07:35 | NUR ---
03/19/25 0735 Serena Sullivan N 148/90 81 100% 10L BLOW BY O2 20
--- NOTE | 2025-03-19 07:51 | NUR ---
03/19/[address] IN SPEAKING WITH PT
[2025-03-19 07:52] VITALS: BP 150/103
== END 2025-03-19 08:05 | disposition home or self-care (01) ==
LOC: ORSCSDS 06:07
PROVIDERS: Student in an Organized Health Care Education/Training Program
PROC: 08RJ3JZ Replacement of Right Lens with Synthetic Substitute, Percutaneous Approach (ICD-10-PCS; principal; 2025-03-19 07:30)
DX: H25.813 Combined forms of age-related cataract, bilateral (principal); H21.81 Floppy iris syndrome; I10 Essential (primary) hypertension; E78.5 Hyperlipidemia, unspecified; J45.909 Unspecified asthma, uncomplicated; J44.9 Chronic obstructive pulmonary disease, unspecified; Z86.711 Personal history of pulmonary embolism; Z79.01 Long term (current) use of anticoagulants; Z79.899 Other long term (current) drug therapy; Z87.891 Personal history of nicotine dependence
CPT/HCPCS: A9270; J2003; V2632

== ENCOUNTER 2025-03-25 11:21 | Day surgery (SDC) | payer MEDICARE, OTHER ==
[~2025-03-25] VITALS: Ht 193 cm; Wt 84.6 kg
[~2025-03-25 11:21] MED LIST changes: +Moxifloxacin HCL 0.5 MG/0.1 ML 0.4MLSYR LEFTEYE SCH; -Moxifloxacin HCL 0.5 MG/0.1 ML 0.4MLSYR RIGHTEYE SCH; +PHENYLEPHRINE\\TROPICAMIDE\\TETRACAINE OPHTHALMIC DILATING SOLN LEFTEYE PRN; -PHENYLEPHRINE\\TROPICAMIDE\\TETRACAINE OPHTHALMIC DILATING SOLN RIGHTEYE PRN; +Povidone-Iodine 450 DROP/30 ML Solution LEFTEYE SCH; -Povidone-Iodine 450 DROP/30 ML Solution RIGHTEYE SCH; +TRELEGY ELLIPT1 EACH IH
--- NOTE | 2025-03-25 12:00 | NUR ---
03/25/25 1200 Genoveva Rubio PT STATES ANXIETY LEVEL IS 5/10 IN PREOP PT HAS CALL LIGHT IN HAND PT IS ON CONTINUOUS PULSE OX ON
[2025-03-25] MEDS ORDERED: Tetracaine HCl 0.5% Opth Soln 15 ml LEFTEYE ONE (12:30)
--- NOTE | 2025-03-25 12:38 | NUR ---
03/25/25 1238 Fabi Pittman 155/104 BP 85 HR 100% O2 16 RR
[2025-03-25 12:52] VITALS: BP 150/94
--- NOTE | 2025-03-25 13:10 | NUR ---
03/25/25 1310 MOSES PETER PT TAKEN HOME BY LIBBY NANCY. JING PT. NO ISSUES NOTED
== END 2025-03-25 13:08 | disposition home or self-care (01) ==
LOC: ORSCSDS 11:21
PROVIDERS: Student in an Organized Health Care Education/Training Program
PROC: 08RK3JZ Replacement of Left Lens with Synthetic Substitute, Percutaneous Approach (ICD-10-PCS; principal; 2025-03-25 13:00)
DX: H25.812 Combined forms of age-related cataract, left eye (principal); H21.81 Floppy iris syndrome; Z96.1 Presence of intraocular lens; I10 Essential (primary) hypertension; E78.5 Hyperlipidemia, unspecified; J44.9 Chronic obstructive pulmonary disease, unspecified; J45.909 Unspecified asthma, uncomplicated; Z79.01 Long term (current) use of anticoagulants; Z79.899 Other long term (current) drug therapy; Z87.891 Personal history of nicotine dependence
CPT/HCPCS: A9270; V2632